=== PATIENT | male | born 1940 | race Caucasian/White ===

== ENCOUNTER 2019-11-15 08:16 | Inpatient (IN) | payer MEDICARE, SELFPAY ==
[2019-11-15] VITALS (18 sets, daily range): BP systolic 105–142; BP diastolic 64–77; PULSE 71–103; RESP 18–22; TEMP 36.2–37.3; O2SAT 82–100; BMI 42.4
--- NOTE | ~2019-11-15 | US_ITS ---
EXAMINATION: US abdomen limited DATE: 11/20/2019 14:20 INDICATION: Liver metastases for planned biopsy. TECHNIQUE: Multiple grayscale and Doppler ultrasound images of the liver were obtained. COMPARISON: CT dated 11/15/2019 FINDINGS/IMPRESSION: None of the liver lesions identified on prior CT were able to be definitively visualized on the ultra sound images likely due to patient body habitus as well as relatively cephalad position of the majori ty of the lesions at the dome of the liver. It was elected to proceed with CT guidance for the planne d biopsy which will be dictated separately. Reviewed, dictated and finalized at location [facility].
--- NOTE | ~2019-11-15 | XR_ITS ---
XR chest port-a-cath/central, XR fl guide central line place 11/21/2019 14:09 (accession [id number]), 11/21/2019 13:55 (accession [id number]) Indication: Right-sided portacatheter placement Procedure: Single fluoroscopic image right upper thorax. 20 seconds of fluoroscopy. Postprocedure AP portable view of the chest Comparison: 06/16/2012 Findings: Right internal jugular portacatheter tip in the condyle aspect of the SVC near the cavoatri al junction. Moderate cardiomegaly. There is suggestion of left-sided airspace disease which is obscu red by cardiac contour. No definite pleural effusion or pneumothorax. Impression: 1: Questionable airspace consolidation left mid and lower thorax, obscured by enlarged heart. Conside rations include atelectasis and/or pneumonia. 2: Moderate cardiomegaly. Reviewed, dictated and finalized at location A. Impression: 1: Questionable airspace consolidation left mid and lower thorax, obscured by e nlarged heart. Considerations include atelectasis and/or pneumonia. 2: Moderate cardiomegaly. Impression: 1: Questionable airspace consolidation left mid and lower thorax, obscured by e nlarged heart. Considerations include atelectasis and/or pneumonia. 2: Moderate cardiomegaly.
--- NOTE | ~2019-11-15 | CT_ITS ---
EXAMINATION: CT abdomen pelvis w con DATE: 11/15/2019 09:42 INDICATION: Abdominal pain, diarrhea TECHNIQUE: Computed tomography (CT) of the abdomen and pelvis was performed with 100 cc Omnipaque 350 intravenous contrast. Automated exposure control and iterative reconstruction technique were employe d. Exam dose: 1519.80 mGy-cm total exam DLP. COMPARISON: 07/20/2009 CT urogram FINDINGS: There is bilateral lower lobe atelectasis, most prominent in the left lower lobe. Cardiomegaly. No pericardial effusion. No pleural effusion. There are multiple space-occupying solid mass lesions of the liver measuring up to 2.5 cm, most consi stent with hepatic metastatic disease. Much less likely consideration would be hepatic abscesses Occasional hepatic cysts. There is some subcapsular fluid accumulation along the anterolateral lower aspect of the right hepati c lobe and adjacent perihepatic fat stranding extending to the right colon where there is some promin ent thickening of the colonic wall involving the ascending colon, suspicious for carcinoma of the asc ending colon. There are evaluation of the colon is recommended by barium enema or colonoscopy. There are numerous diverticula of the left colon; no CT evidence diverticulitis. There are air-fluid levels of the proximal colon and there is fluid distention and air-fluid levels a nd mild dilatation of 4 cm of the small bowel. The gallbladder is present. No bile duct or pancreatic duct dilatation. No pancreatic mass lesion or calcification. Probable very small right adrenal adenoma. The adrenal glands are otherwise unremarkable. Up to approximately 1.3 cm occasional hypoenhancing lesions of the left kidney and up to approximatel y 10 mm indeterminate hypoenhancing lesions of the right kidney. A pinpoint nonobstructing left renal calculus is noted. No ureteral calculus or hydroureteronephrosis . There is prostate enlargement and calcification. There is a prominent soft tissue mass at the base of the urinary bladder which may represent prostatomegaly, prostate cancer or less likely urinary bladd er cancer. There is diffuse moderate thickening of the urinary bladder wall likely related to bladder outlet obstruction associated with prostate enlargement. Abdominal aortic calcification. No intraperitoneal or retroperitoneal or pelvic mass lesion or adenop athy or ascites is noted otherwise. There are extensive degenerative changes of the included lower thoracic and lumbar spine including se oma degenerative disc disease throughout the lumbar and lumbosacral area and diffuse idiopathic skel etal hyperostosis of the thoracic spine. No apparent suspicious osteolytic or osteoblastic lesions ar e identified. 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 Reviewed, dictated and finalized at location A. IMPRESSION: Suspected carcinoma the ascending colon with hepatic metastatic di sease Mild small bowel dilatation and air-fluid levels, air-fluid levels of ascending colon, possibly secondary to partial obstruction due to the ascending colon ma ss Diverticulosis of the colon Nonspecific up to 1.3 cm left and 10 mm right indeterminate renal lesions Prostate enlargement and calcification
--- NOTE | ~2019-11-15 | CT_ITS ---
EXAMINATION: CT bx liver DATE: 11/20/2019 15:29 INDICATION: Multiple liver masses TECHNIQUE: The procedure including the risks and benefits was discussed with the patient. Risks discu ssed included bleeding and infection. The challenging location and poor conspicuity of the lesions wh ich increase the potential for nondiagnostic specimen was discussed with the patient. The patient und erstood the risks and agreed to proceed. The skin overlying the liver was prepped and draped in usua l sterile fashion. Anesthetic was administered with 1% lidocaine subcutaneously. During the biopsy 2 separate boluses of 75 mL and 100 mL Omnipaque-350 were utilized to aid in localization of the lesio n. An 18 gauge outer needle was advanced under CT guidance to the region of one of the lesions of int erest. An 20 gauge core biopsy needle was then advanced through the guide needle to obtain 6 core bio psy specimens. The biopsy needle and outer needle were removed and the entry site was cleaned and ryan ssed. There were no immediate complications. The mAs was minimized when appropriate to minimize radi ation dose. The dose-length product was 2080.69 mGy-cm. FINDINGS: CT images demonstrate the outer needle tip in the region of an approximately 1.7 cm lesion in the right hepatic lobe. Again seen is focal soft tissue thickening of the ascending colon and soft tissues just nodule in the immediately adjacent fat consistent with biopsy-proven colon cancer and l ikely local metastasis. IMPRESSION: 1. Successful CT-guided biopsy of one of several hepatic lesions concerning for metastatic disease. Reviewed, dictated and finalized at location A.
--- NOTE | 2019-11-15 08:30 | ED.ABDPAIN ---
HPI - Abdominal Pain General Chief Complaint: Abdominal Pain Stated Complaint: ABD PAIN/DIARRHEA Source: RN notes reviewed History of Present Illness HPI narrative: Patient presents emergency department via EMS from [facility] for abdominal pain. Patient states he is been having abdominal pain for the past 4 days. Abdominal pain is diffuse throughout the abdomen described as cramping worse in the lower quadrants. States he is had numerous episodes of diarrhea as well as a few episodes of vomiting. He denies any fevers or chills chest pain shortness of breath or any other symptoms at this time Related Data Home Medications Medication Instructions Recorded Confirmed vitamin E 400 unit PO DAILY 11/15/19 Allergies Allergy/AdvReac Type Severity Reaction Status Date / Time No Known Allergies Allergy Mild Verified 11/15/19 08:23 mold Allergy Unknown Sneezing Verified 11/15/19 08:23 Review of Systems Review of Systems: Narrative: Gen.: Denies fevers or chills ENT: Denies congestion Respiratory: Denies shortness of breath or cough CV: Denies chest pain or palpitations GI: See HPI denies burning, urgency, frequency or hematuria Musculoskeletal: Denies back pain or muscle pain Neuro: Denies numbness, tingling, weakness or focal weakness Skin: Denies rash Except as documented, all other systems reviewed and negative [facility] Past Medical History Medical History (Updated 11/15/19 @ 11:43 by Ivan Sapp DO) Atrial fibrillation GERD (gastroesophageal reflux disease) Hypertension Family History Family History (Updated 05/01/15 @ 14:44 by DOCTOR UNKNOWN) Father Family history of coronary artery disease Acute myocardial infarction Mother Acute myocardial infarction Social History Social History Smoking status: Never smoker Alcohol intake: current Exam Narrative: Exam Narrative: APPEARANCE: No acute distress, nontoxic, resting in bed HEENT: Normocephalic, atraumatic, OMM RESPIRATORY: No respiratory distress, clear to auscultation bilaterally with no rhonchi wheezing or rales CARDIOVASCULAR: RRR s murmur ABDOMINAL: Soft, nondistended, diffusely tender to palpation, no rebound or guard MUSCULOSKELETAl: Moves all extremities. No clubbing, cyanosis or edema. NEURO: Awake and alert. Following commands, speech normal, no focal deficits SKIN:: Warm, dry. Normal Color PSYCHIATRIC: Normal affect/mood Course Course Emergency Course: Discussed with Dr. Lockwood presentation work-up agrees with consult at this time at this time agrees with consult. Request consult to GI. With patient having no current vomiting request no NG tube at this time Discussed with Dr. Montero presentation working and agrees with consult Discussed with Dr. Jean presentation work-up he agrees with admission at this time Discussed with patient and family results of workup and diagnosis. Discussed need for admission. Patient and family understand and agree to current treatment plan Vital Signs Vital signs: Vital Signs Temperature 97.5 F L 11/15/19 08:17 Pulse Rate 98 11/15/19 08:17 Respiratory Rate 18 11/15/19 08:17 Blood Pressure 133/76 11/15/19 08:17 Pulse Oximetry 98 11/15/19 08:17 Temperature 97.5 F L 11/15/19 08:17 Pulse Rate 71 11/15/19 11:18 Respiratory Rate 20 11/15/19 11:18 Blood Pressure 105/64 11/15/19 11:18 Pulse Oximetry 97 11/15/19 11:18 MDM - Abdominal Pain Lab Data Result diagrams: 11/15/19 08:38 11/15/19 08:38 Labs: Lab Results 11/15/19 11/15/19 11/15/19 Range/Units 08:38 08:38 08:39 WBC 10.3 H (4.5-10.0) K/mm3 RBC 3.51 L (4.6-6.20) M/mm3 Hgb 7.6 L (14.0-18.0) g/dL Hct 26.3 L (42.0-52.0) % MCV 74.9 L (80-100) fl MCH 21.7 L (26-34) pg MCHC 28.9 L (32-36) g/dl RDW 16.0 H (11.5-14.5) % Plt Count 427 H (150-375) k/mm3 MPV 8.9 (7.4-10.4)
[2019-11-15] MEDS: SODIUM CHLORIDE 0.9% IV 1,000 ML 999 ML IV CONT (08:37)
[2019-11-15 08:54] LABS: Basophils Percent Auto 0.1 % (0.2-1.2); Eosinophils Absolute Auto 0.2 K/mm3 (0-0.3); Eosinophils Percent Auto 2.1 % (0-4.4); Hematocrit 26.3 % (42.0-52.0); Hemoglobin 7.6 g/dL (14.0-18.0); Immature Granulocyte Absolute 0.05 K/mm3 (0.00-0.031); Immature Granulocyte Percent A 0.5 % (0-0.5); Lymphocytes Absolute Auto 1.07 K/mm3 (0.9-3.2); Lymphocytes Percent Auto 10.4 % (18.3-44.2); Mean Corpuscular HGB Conc 28.9 g/dl (32-36); Mean Corpuscular Hemoglobin 21.7 pg (26-34); Mean Corpuscular Volume 74.9 fl (80-100); Mean Platelet Volume 8.9 fl (7.4-10.4); Monocytes Absolute Auto 0.9 K/mm3 (0.1-0.6); Neutrophils Percent Auto 77.9 % (45.5-73.1); Platelet Count Result 427 k/mm3 (150-375); Red Blood Count 3.51 M/mm3 (4.6-6.20); White Blood Count 10.3 K/mm3 (4.5-10.0)
[2019-11-15 09:02] LABS: INR 1.2; Prothrombin Time 15.1 Seconds (11.1-14.7)
[2019-11-15 09:03] LABS: Partial Thromboplastin Time 35.2 SECONDS (22.3-36.8)
[2019-11-15 09:04] LABS: Lactic Acid Reflex 1.1 mmol/L (0.7-2.1)
[2019-11-15 09:04] LABS: Anisocytosis 1+ (NORMAL); Hypochromasia 1+ (NORMAL); Platelet Estimate Adequate (Adequate)
[2019-11-15 09:06] LABS: Alanine Aminotransferase 15 U/L (4-50); Albumin Level 3.4 g/dL (3.5-5.1); Alkaline Phosphatase 70 U/L (38-126); Aspartate Amino Transferase 26 U/L (17-59); Bilirubin,Total 0.3 mg/dL (0.2-1.3); Blood Urea Nitrogen 19 mg/dL (9-20); Carbon Dioxide 31 mmol/L (22-30); Chloride 99 mmol/L (98-107); Estimated CRCL calculation 80 ml/min; Estimated Glomerular Filt Rate > 60; Glucose 113 mg/dL (75-110); Lipase 45 U/L (23-300); Potassium 4.3 mmol/L (3.4-5.0); Sodium 135 mmol/L (137-145)
[2019-11-15 10:11] LABS: Add Urine Microscopic? YES; Appearance Urine Cloudy (Clear); Bacteria Urine Trace /hpf; Bilirubin Urine Negative (Negative); Blood Urine 3+ (Negative); Color Urine Yellow (Yellow); Glucose Urine UA Negative (Negative); Ketones Urine Negative (Negative); Leukocyte Esterase Ur Negative LEU/UL (Negative); Mucus Urine Few /lpf; Nitrate Urine Negative (Negative); Protein Urine 2+ mg/dL (Negative); RBC Urine >75 /hpf (0-2); Specific Grav Ur 1.019 (1.001-1.035); Urobilinogen Urine Negative mg/dL (<2.0); WBC Urine 51-75 /hpf
--- NOTE | 2019-11-15 12:30 | ADMGEN ---
This patient, Chaim Wade, was admitted to -. Patient/family oriented to hospital policies and general routines including ID bracelet, bed and alarms, visiting hours, pain management, procedures, bathroom and other care routines, personal items, smoking policy, room service/diet, and visiting hours. Valuables list has been completed. Information on how to activate the Rapid Response Team has been discussed. Patient/Family are encouraged to report perceived risks to care and to ask questions if they do not understand what they are told or what they should do.
--- NOTE | 2019-11-15 12:49 | WPDGICN ---
Assessment and Plan Assessment and plan (1) Abnormal CT scan: Code(s): R93.89 - Abnormal findings on diagnostic imaging of other specified body structures Status: Acute Assessment and Plan: CT can scan strongly suspicious for liver metastases and colon mass in the ascending colon. Plan is to prepare patient with laxatives and proceed with colonoscopy. Given question over anticoagulation will defer this until Monday. It will likely take several days for colon preparation. A liver biopsy may also be required via CT scan guidance to confirm metastatic disease suspected in the liver. (2) Partial bowel obstruction: Code(s): K56.600 - Partial intestinal obstruction, unspecified as to cause Status: Acute Assessment and Plan: Given partial small-bowel obstruction will limit to liquid diet only in the interim period patient has been having bowel movements. And will need preparation prior to endoscopy. (3) Anemia: Code(s): D64.9 - Anemia, unspecified Status: Acute Assessment and Plan: Microcytic anemia identified in the emergency room. Strongly suspicious for iron deficiency. Iron indices will be obtained. Iron replacement suggested after colonoscopy. (4) Atrial fibrillation: Code(s): I48.91 - Unspecified atrial fibrillation Status: Acute Assessment and Plan: Patient identified as having atrial fibrillation. It is uncertain if he remains on anticoagulation. No anticoagulation should be given prior to further investigation with liver biopsy and colonoscopy. (5) Colonic mass: Code(s): K63.89 - Other specified diseases of intestine Status: Acute Assessment and Plan: Colon mass identified on CT scan suspicious for carcinoma plan is for colonoscopy to confirm this finding. Surgery consultation for partial small-bowel obstruction eventual surgery with Dr. Lockwood in progress. (6) Morbid obesity: Code(s): E66.01 - Morbid (severe) obesity due to excess calories Status: Acute GI Consult Note Consult date/time: 11/15/19 12:49 HPI: Chaim Wade is a 78 year old male seen in evaluation at the request of the emergency room. Patient reports a 4 day history of right lower quadrant abdominal pain. He subsequently had some diarrhea stools. Because of persistent severe pain he presented to the emergency room today. Patient denies any nausea vomiting he has been able to maintain oral intake without difficulty. He denies any fevers he denies abdominal pain. In the emergency room a CT scan suggested liver metastases and an ascending colon lesion suspicious for carcinoma. Concern over partial obstruction was identified. Patient denies any obvious signs of blood loss. He has had never had pain to this degree before. He denies ever having a previous colonoscopy. Past history is significant for atrial fibrillation he reports he may be on blood thinners. This is been difficult to confirm. Review of Systems Review of Systems: All systems reviewed & are unremarkable except as noted in HPI and below [facility] Past Medical History Medical History Atrial fibrillation GERD (gastroesophageal reflux disease) Hypertension Family History Family History Father Family history of coronary artery disease Acute myocardial infarction Mother Acute myocardial infarction Social History Social History Smoking status: Never smoker Alcohol intake: current Meds Home Medications and Allergies Home Medications Medication Instructions Recorded Confirmed Type diltiazem HCl 360 mg 360 mg PO DAILY #90 cap 11/04/19 11/15/19 Rx capsule,extended release 24 hr furosemide 40 mg tablet 40 mg PO QAM #90 tablet 11/04/19 11/15/19 Rx potassium chloride 10 mEq 10 meq PO DAILY #90 cap 11/04/19
[2019-11-15 13:11] LABS: Iron 26 ug/dL (49-181)
[2019-11-15 13:20] LABS: Percent Iron Saturation 11 % (20-50)
[2019-11-15 13:42] LABS: Carcinoembryonic Antigen 1.3 ng/mL (0.0-3.0)
--- NOTE | 2019-11-15 13:58 | PM.CNGS ---
Assessment and Plan Assessment and plan (1) Colonic mass: Code(s): K63.89 - Other specified diseases of intestine Status: Acute Assessment and Plan: CT scan reviewed and discussed with the patient in detail. There is evidence of wall thickening of the ascending colon concerning for malignancy that may also be causing a partial bowel obstruction, with possible metastatic liver lesions. The patient does not show signs of a high-grade obstruction at this time and has been tolerating oral intake without nausea or vomiting. There is no indication for any emergent surgical intervention at this time, which will allow time for further workup of the CT findings. An initial option would be to proceed with a Colonoscopy per GI's discretion to obtain biopsies of the area of concern in the ascending colon. GI has been consulted and their recommendations are appreciated. Could also consider getting a biopsy of the liver lesions by Radiology. We will defer NG tube placement at this time, unless the patient develops nausea and vomiting. It is okay from a surgical standpoint to allow the patient to have a clear liquid diet. Will continue to monitor the patient with serial abdominal exams. Biopsy results will help decipher further surgical plan of care. The patient is a higher risk surgical candidate due to his multiple co-morbidities, age, and obesity, but this will be further discussed following further workup. Thank you for allowing me to see the patient in consultation and we will continue to follow along with you. (2) Partial bowel obstruction: Code(s): K56.600 - Partial intestinal obstruction, unspecified as to cause Status: Acute Assessment and Plan: See plan above. (3) Abnormal CT scan: Code(s): R93.89 - Abnormal findings on diagnostic imaging of other specified body structures Status: Acute Assessment and Plan: See plan above. Liver lesions noted on CT concerning for hepatic metastatic disease. Could consider core needle biopsy of the liver lesions by Radiology. (4) Anemia: Code(s): D64.9 - Anemia, unspecified Status: Acute Assessment and Plan: Hgb 7.6 and hemodynamically stable. GI consulted and appreciate their recommendations. Continue to monitor labs, serial H/H currently ordered. (5) Atrial fibrillation: Code(s): I48.91 - Unspecified atrial fibrillation Status: Acute Assessment and Plan: The patient's rhythm is irregular on my exam, but rate-controlled. No recent EKG noted in the chart. Per the nurse, his home med list was confirmed with Rosario Culver and he does not appear to be on any systemic anticoagulation. (6) Hypertension: Code(s): I10 - Essential (primary) hypertension Status: Acute Assessment and Plan: Management per the Hospitalist. (7) Obstructive sleep apnea on CPAP: Code(s): G47.33 - Obstructive sleep apnea (adult) (pediatric); Z99.89 - Dependence on other enabling machines and devices Status: Acute (8) Morbid obesity: Code(s): E66.01 - Morbid (severe) obesity due to excess calories Status: Acute Additional Plan I discussed the patient's case and formulated the plan of care with Dr. Lockwood today. History of Present Illness Consult details Consult date: 11/15/19 Reason for consult: other (Ascending colonic wall thickening with dilated proximal colon and small bowel noted on CT scan) Requesting physician: Ivan Sapp DO Narrative: This is a 78-year-old obese male who presented to the emergency department for evaluation of abdominal pain, diarrhea, and generalized weakness. His medical history includes atrial fibrillation without current systemic anticoagulation, hypertension, hyperlipidemia, GERD, and obstructive sleep apnea. The patient reports noting diarrhea and lower abdominal pain for the past 3 days. He states that he has also noted black stools over the past 3 weeks, which is new f
[2019-11-15] MEDS: SODIUM CHLORIDE 0.9% IV 1,000 ML 125 ML IV CONT (14:14)
--- NOTE | 2019-11-15 16:25 | PM.IMHP ---
H&P: HPI History of Present Illness Chief complaint: Abdominal pain and diarrhea. Narrative: Chaim Wade is a very pleasant 78-year-old gentleman with paroxysmal atrial fibrillation, obstructive sleep apnea, hypertension, hyperlipidemia, and benign prostatic hyperplasia who presented to the emergency department earlier today for evaluation of abdominal pain and diarrhea. He has had intermittent diarrhea over the past several weeks, and notes that his stools have been dark as well. Over the past several days, he has had discomfort in the lower abdomen that he describes as cramping in nature. He was prescribed hyoscyamine by his primary care provider, but unfortunately the initial dose that he took yesterday was of no benefit. His appetite has also been decreased over the past few days which she attributes to the abdominal discomfort as well as some mild indigestion. Pertinent findings on labs and imaging done on arrival to the emergency department include microcytic anemia and suspected ascending colon mass with multiple space-occupying solid mass lesions in the liver. With further questioning, the patient reports having prepped for colonoscopy many years ago, however the procedure was not performed due to what sounds like new onset atrial fibrillation. His weight has remained stable. He gives no personal or family history of colon cancer. He denies nausea and vomiting. Denies iron supplementation and Pepto-Bismol use. Review of Systems Review of Systems: Narrative: Twelve systems were reviewed with pertinent positives and negatives as per HPI. Weight has remained stable. No fever, chills, or sweats. No recent cold or flu symptoms. He has been feeling weak over the past several days which she attributes to decreased oral intake and abdominal discomfort. Aside from the dark stools, he has not noticed blood loss and specifically denies epistaxis, hematemesis, hematochezia, and hematuria. No dysuria or hematuria (urine specimen today was collected via straight catheterization). No chest pain or palpitations. Denies cough and shortness of breath. Except as documented, all other systems were reviewed and are negative. [facility] Past Medical History Medical History (Updated 11/15/19 @ 16:47 by Indu Lester PA-C) Atrial fibrillation No longer on systemic anticoagulation for reasons unclear to the patient. Benign prostatic hyperplasia GERD (gastroesophageal reflux disease) Hyperlipidemia Hypertension Obstructive sleep apnea on CPAP Compliant with CPAP. Surgical History Surgical History (Updated 11/15/19 @ 16:41 by Indu Lester PA-C) History of arthroscopy of right knee (~1998) History of total left knee replacement (~2000) Family History Family History Father Family history of coronary artery disease Acute myocardial infarction Mother Acute myocardial infarction Social History Social History (Updated 11/15/19 @ 16:44 by Indu Lester PA-C) Social History: The patient and his have been at [facility] for the past 14 years. She has advanced Alzheimer's disease and lives in the [facility]. He has an apartment in independent living. Together they have 4 children, 2 are from his 's previous marriage. 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 He is a lifelong nonsmoker and denies alcohol and drug abuse. His son, Kamran Wade, is his healthcare power of music director. The patient wishes to be a do not resuscitate. Alcohol use details: Rare. Last intake was months ago. Spiritual care concerns: No Agree to blood products: Yes Meds Home Medications and Allergies Home Medications Medication Instructions Recorded Confirmed Type diltiazem HCl 360 mg 360 mg PO DAILY #90 cap 11/04/19 11/15/19 Rx capsule,extended release 24 hr furosemide 40 mg tablet 40 mg PO QAM #90 tablet 11/04/19 11/15/19 Rx potassium chloride 10 mEq 10 meq
[2019-11-15 16:35] LABS: Hematocrit 26.3 % (42.0-52.0); Hemoglobin 7.7 g/dL (14.0-18.0)
--- NOTE | 2019-11-15 17:32 | PM.OP ---
Procedure Note - Brief Procedure Note - Brief Date of procedure: 11/15/19 Pre-op diagnosis: Abdominal pain and diarrhea. Upper GI bleeding, hematemesis, alcoholic cirrhosis. Procedure performed: EGD. Description of procedure: Fujinon video endoscope is passed to the esophagus no significant varices are identified within the esophagus. At the GE junction several large distal esophageal ulcerations are noted. No active bleeding from this area. Stomach his hands entirety including U-turn reveals large gastric varices with stigmata of recent bleeding. On 1 of these large varix visible vessels identified not actively bleeding at this time. The remainder of the stomach reveals some residual blood. No additional lesions. No ulcers. Duodenum reveals normal bulb and sweep to 2nd portion. Anesthesia: MAC Surgeon: Selvin Montero MD Estimated blood loss (mL): 0 Pathology: none sent Complications: No immediate complications Condition: critical Disposition: ICU Findings: 1. Distal esophageal ulcerations. 2. Gastric varices with stigmata of recent bleeding. Plan to remain in ICU. Octreotide drip. Transfuse to maintain stable hemoglobin. Consider CT scan of the abdomen to exclude splenic vein thrombus when stable enough for CT. Consider transfer to [facility] for TI PS procedure Case discussed with hospitalist Rivka Lester. Who agrees with plan.
[2019-11-15 21:28] LABS: Hematocrit 25.3 % (42.0-52.0); Hemoglobin 7.4 g/dL (14.0-18.0)
[2019-11-15] MEDS: ACETAMINOPHEN 325 MG TABLET 650 MG PO (21:29)
[2019-11-15] MEDS: SODIUM CHLORIDE 0.9% IV 1,000 ML 75 ML IV CONT (23:52)
[2019-11-16 01:42] VITALS: RESP 19
[2019-11-16] MEDS: LORAZEPAM 0.5 MG TABLET PO (02:31)
[2019-11-16 03:45] LABS: Basophils Percent Auto 0.2 % (0.2-1.2); Eosinophils Absolute Auto 0.2 K/mm3 (0-0.3); Eosinophils Percent Auto 2.7 % (0-4.4); Hematocrit 26.9 % (42.0-52.0); Hemoglobin 7.9 g/dL (14.0-18.0); Immature Granulocyte Absolute 0.02 K/mm3 (0.00-0.031); Immature Granulocyte Percent A 0.2 % (0-0.5); Lymphocytes Absolute Auto 0.79 K/mm3 (0.9-3.2); Lymphocytes Percent Auto 8.8 % (18.3-44.2); Mean Corpuscular HGB Conc 29.4 g/dl (32-36); Mean Corpuscular Hemoglobin 22.1 pg (26-34); Mean Corpuscular Volume 75.4 fl (80-100); Mean Platelet Volume 8.8 fl (7.4-10.4); Monocytes Absolute Auto 0.9 K/mm3 (0.1-0.6); Monocytes Percent Auto 10.4 % (2.6-8.5); Neutrophils Absolute Auto 6.9 K/mm3 (1.3-6.7); Neutrophils Percent Auto 77.7 % (45.5-73.1); Platelet Count Result 398 k/mm3 (150-375); Red Blood Count 3.57 M/mm3 (4.6-6.20); White Blood Count 8.9 K/mm3 (4.5-10.0)
[2019-11-16 03:57] LABS: Alanine Aminotransferase 23 U/L (4-50); Albumin Level 3.5 g/dL (3.5-5.1); Alkaline Phosphatase 69 U/L (38-126); Aspartate Amino Transferase 36 U/L (17-59); Bilirubin,Total 0.3 mg/dL (0.2-1.3); Blood Urea Nitrogen 16 mg/dL (9-20); Calcium 8.4 mg/dL (8.4-10.2); Carbon Dioxide 26 mmol/L (22-30); Chloride 103 mmol/L (98-107); Estimated CRCL calculation 88 ml/min; Estimated Glomerular Filt Rate > 60; Glucose 114 mg/dL (75-110); Potassium 3.7 mmol/L (3.4-5.0); Sodium 137 mmol/L (137-145)
[2019-11-16 04:15] VITALS: RESP 22
[2019-11-16 04:15] LABS: Ovalocytes 1+ (NORMAL); Platelet Estimate Adequate (Adequate)
[2019-11-16 04:16] LABS: Hypochromasia 1+ (NORMAL)
[2019-11-16 04:28] LABS: Carcinoembryonic Antigen 1.4 ng/mL (0.0-3.0)
[2019-11-16 06:00] VITALS: BP 124/78; PULSE 100; RESP 22; TEMP 37.2; O2SAT 98
--- NOTE | 2019-11-16 06:49 | WPDGIPROGNO ---
Progress Note: A&P Assessment and Plan (1) Abnormal CT scan: Code(s): R93.89 - Abnormal findings on diagnostic imaging of other specified body structures Status: Acute Assessment and Plan: Suspicion of colon mass with liver metastases on CT scan. Plan is to prep patient for colonoscopy on Monday. Liquid diet today. May start some laxatives today in complete prep on Monday. (2) Partial bowel obstruction: Code(s): K56.600 - Partial intestinal obstruction, unspecified as to cause Status: Acute Assessment and Plan: Patient tolerating liquid diet. Continues to have bowel movements. Does not appear to have complete obstruction. (3) Morbid obesity: Code(s): E66.01 - Morbid (severe) obesity due to excess calories Status: Acute (4) Atrial fibrillation: Code(s): I48.91 - Unspecified atrial fibrillation Status: Acute Assessment and Plan: Atrial fibrillation noted. Hold anticoagulation until GI endoscopy can be completed. (5) Obstructive sleep apnea on CPAP: Code(s): G47.33 - Obstructive sleep apnea (adult) (pediatric); Z99.89 - Dependence on other enabling machines and devices Status: Acute Subjective Date/time seen: 11/16/19 06:49 Patient alert more comfortable this morning. Tolerated liquid diet. Abdominal pain has lessened to a great degree. He continues to pass some liquid stools. Review of Systems Review of Systems: All systems reviewed & are unremarkable except as noted in HPI and below Exam Narrative: Exam Narrative: Patient alert. Vital signs stable. He is anicteric. Lungs are clear. Heart without murmur. Abdomen is obese soft and nontender. No obvious organomegaly on exam. Objective Data Vital Signs Vital Signs: Vital Signs - 24 hr 11/15/19 08:17 11/15/19 08:24 11/15/19 08:32 Temperature 36.4 C L Pulse Rate 98 87 Respiratory Rate 18 Blood Pressure 133/76 Pulse Oximetry 98 82 L 97 11/15/19 08:47 11/15/19 09:02 11/15/19 09:15 Temperature Pulse Rate 89 88 86 Respiratory Rate Blood Pressure Pulse Oximetry 97 99 11/15/19 09:39 11/15/19 09:41 11/15/19 09:45 Temperature Pulse Rate 92 96 102 H Respiratory Rate 20 Blood Pressure 123/73 Pulse Oximetry 96 97 96 11/15/19 10:00 11/15/19 10:02 11/15/19 11:18 Temperature Pulse Rate 97 93 71 Respiratory Rate 20 Blood Pressure 135/77 105/64 Pulse Oximetry 97 11/15/19 12:28 11/15/19 13:03 11/15/19 14:00 Temperature 36.2 C L 36.3 C L Pulse Rate 82 87 88 Respiratory Rate 20 22 H 18 Blood Pressure 142/70 H 134/71 115/72 Pulse Oximetry 97 88 L 100 11/15/19 18:36 11/15/19 20:00 11/15/19 20:35 Temperature 37.3 C Pulse Rate 94 103 H 97 Respiratory Rate 20 22 H 21 H Blood Pressure 113/66 Pulse Oximetry 95 97 96 11/16/19 01:42 11/16/19 04:15 11/16/19 06:00 Temperature 37.2 C Pulse Rate 100 Respiratory Rate 19 22 H 22 H Blood Pressure 124/78 Pulse Oximetry 98 Intake/Output Intake/Output: Intake & Output 11/13/19 11/14/19 11/15/19 11/16/19 23:59 23:59 23:59 23:59 Intake Total 2900 150 Output Total 300 200 Balance 2600 -50 Meds/Results Medications: Active Medications Generic Name Dose Route Start Last Admin Trade Name Freq PRN Reason Stop Dose Admin Acetaminophen 650 mg 11/15/19 17:05 11/15/19 21:29 Tylenol Tablet PO 650 mg Q6H PRN Administration Mild Pain (1-3) or Fever Hydrocodone Bitart/Acetaminophen 1 tab 11/15/19 17:05 11/15/19 17:53 [place] 5-325 Mg PO 1 tab Q6H PRN Administration Pain Rated 4-10 Diltiazem HCl 360 mg 11/16/19 09:00 Cardizem Cd PO 12/16/19 09:01 DAILY LESLIE Furosemide 40 mg 11/16/19 09:00 Lasix Tablet PO QAM LESLIE Lisinopril 20 mg 11/16/19 09:00 Prinivil PO DAILY LESLIE Ondansetron HCl 4 mg 11/15/19 11:28 Zofran Inj IV PUSH Q4H PRN Nausea Oxybutynin Chloride 5 mg 11/16/19 09:00
[2019-11-16] MEDS: OXYBUTYNIN CHLORIDE 5 MG TABLET PO ×2 (08:34→17:20)
[2019-11-16] MEDS: TAMSULOSIN HCL 0.4 MG CAPSULE PO (08:34)
[2019-11-16] MEDS: lisinopriL 20 MG TABLET PO (08:34)
[2019-11-16] MEDS: FUROSEMIDE 40 MG TABLET PO (08:34)
[2019-11-16] MEDS: POTASSIUM CHLORIDE 10 MEQ TABLET.ER PO (08:34)
[2019-11-16] MEDS: VENLAFAXINE HCL XR 75 MG CAP.ER.24H PO ×2 (08:35→17:20)
--- NOTE | 2019-11-16 08:48 | PM.IMPN ---
Progress Note: A&P Assessment and Plan (1) Abnormal CT scan: Code(s): R93.89 - Abnormal findings on diagnostic imaging of other specified body structures Status: Acute Assessment and Plan: -----CT of the abdomen pelvis shows likely colonic mass and liver metastases. He is to have a colonoscopy by Dr. Montero Monday. He also has a possible bowel obstruction but is eating and drinking fine with no nausea or vomiting. The CT also mentions some urologic abnormalities and I am going to consult Urology. See below. (2) Partial bowel obstruction: Code(s): K56.600 - Partial intestinal obstruction, unspecified as to cause Status: Acute Assessment and Plan: -----the patient has had multiple bowel movements and is tolerating a clear liquid diet, which will be continued. (3) Microcytic anemia: Code(s): D50.9 - Iron deficiency anemia, unspecified Status: Acute Assessment and Plan: -----appears to be anemia chronic disease likely due to carcinoma and could have a component of iron deficiency. Monitor H&H. Patient is not having any symptoms of anemia at this time (4) Atrial fibrillation: Code(s): I48.91 - Unspecified atrial fibrillation Status: Acute Assessment and Plan: -----chronic and rate controlled. Not on any anticoagulation. Because of his new diagnosis and significant anemia, no plan to start anticoagulation at this time. Continue diltiazem (5) Hypertension: Code(s): I10 - Essential (primary) hypertension Status: Acute Assessment and Plan: -----last blood pressure 124/78. Continue lisinopril and Lasix (6) Obstructive sleep apnea on CPAP: Code(s): G47.33 - Obstructive sleep apnea (adult) (pediatric); Z99.89 - Dependence on other enabling machines and devices Status: Acute Assessment and Plan: -----continue CPAP. (7) Benign prostatic hyperplasia: Code(s): N40.0 - Benign prostatic hyperplasia without lower urinary tract symptoms Status: Acute Assessment and Plan: -----continue tamsulosin. CT showed enlargement and calcification. (8) Hematuria: Code(s): R31.9 - Hematuria, unspecified Status: Acute Assessment and Plan: -----UA greater than 75 red blood cells but also does have some white blood cells as well. Patient is not having any symptoms of UTI at this time. The CT shows: There is a prominent soft tissue mass at the base of the urinary bladder which may represent prostatomegaly, prostate cancer or less likely urinary bladder cancer. There is diffuse moderate thickening of the urinary bladder wall likely related to bladder outlet obstruction associated with prostate enlargement. Because of his hematuria and liver Mets (which are likely from the colon cancer) I will consult Urology to see if he needs a cystoscopy as well. He has had a colonoscopy Monday. Urine culture is pending but I do not see any evidence of infection at this time. (9) Anxiety: Code(s): F41.9 - Anxiety disorder, unspecified Status: Acute Assessment and Plan: -----patient sounds like he had an anxiety episode last night. He feels overwhelmed with all the information and misses his dog and . He is in much better spirits today and he said taking big breaths and talking to the nurses helped him calmed down. I have added Xanax p.r.n. if needed. Time Spent With Patient Time with patient: 25 - 35 minutes Subjective Date/time seen: 11/16/19 08:48 Interval history: Pt is a 78-year-old male here for abdominal pain and diarrhea found to have a colon mass with liver metastases. Patient was seen today and states he is still having liquid stool. He does not have any abdominal pain at this time. He had a bit of anxiety overnight but is doing much better. He states he has no hematuria, dysuria, or foul-smelling odor. Pt denies nausea, vomiting, fev
--- NOTE | 2019-11-16 09:49 | WPDURCON ---
Assessment and Plan Assessment and plan (1) Benign prostatic hyperplasia: Code(s): N40.0 - Benign prostatic hyperplasia without lower urinary tract symptoms Status: Acute Assessment and Plan: minimal voiding complaints good voiding efficiency stop oxybutinin continue Flomax (2) Hematuria: Code(s): R31.9 - Hematuria, unspecified Status: Acute Assessment and Plan: resolved most likely related to cath irritation with straight cath Urology Consult Note HPI Date Seen: 11/16/19 Requesting Physician: Anahi Tracey PA-C Primary Care Provider: Olive Benito MD Consult Narrative Narrative: Chaim Wade is a 78 year old male admitted with loose stools was found to have colon mass on CT. Pt had addtional finding of 2 small benign renal cyst, and slt enlarged prostate. Pt has no voiding complaints other than nocturia 1-2. No dysuria, no hematuria per pt. Review of Systems Cardiovascular: Cardiovascular: Reports no additional cardiovascular complaints Respiratory: Respiratory: Reports no additional respiratory complaints Genitourinary: Genitourinary: Reports no additional male genitourinary complaints [facility] Past Medical History Medical History (Updated 11/16/19 @ 08:53 by Anahi Tracey PA-C) Atrial fibrillation No longer on systemic anticoagulation for reasons unclear to the patient. Benign prostatic hyperplasia GERD (gastroesophageal reflux disease) Hyperlipidemia Hypertension Obstructive sleep apnea on CPAP Compliant with CPAP. Surgical History Surgical History (Updated 11/15/19 @ 16:41 by Indu Lester PA-C) History of arthroscopy of right knee (~1998) History of total left knee replacement (~2000) Family History Family History Father Family history of coronary artery disease Acute myocardial infarction Mother Acute myocardial infarction Social History Social History (Updated 11/15/19 @ 16:44 by Indu Lester PA-C) Social History: The patient and his have been at [facility] for the past 14 years. She has advanced Alzheimer's disease and lives in the jail. He has an apartment in independent living. Together they have 4 children, 2 are from his 's previous marriage. 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 He is a lifelong nonsmoker and denies alcohol and drug abuse. His son, Kamran Wade, is his healthcare power of personal injury attorney. The patient wishes to be a do not resuscitate. Alcohol use details: Rare. Last intake was months ago. Spiritual care concerns: No Agree to blood products: Yes Meds Home Medications and Allergies Home Medications Medication Instructions Recorded Confirmed Type diltiazem HCl 360 mg 360 mg PO DAILY #90 cap 11/04/19 11/15/19 Rx capsule,extended release 24 hr furosemide 40 mg tablet 40 mg PO QAM #90 tablet 11/04/19 11/15/19 Rx potassium chloride 10 mEq 10 meq PO DAILY #90 cap 11/04/19 11/15/19 Rx capsule,extended release venlafaxine 75 mg tablet,extended 75 mg PO BID #180 tablet 11/04/19 11/15/19 Rx release 24 hr lisinopril 20 mg tablet 20 mg PO DAILY #90 tablet 11/12/19 11/15/19 Rx oxybutynin chloride 5 mg tablet 5 mg PO BID #180 tablet 11/12/19 11/15/19 Rx hyoscyamine sulfate 0.125 mg tablet 0.125 mg PO BID PRN #30 tablet 11/14/19 11/15/19 Rx tamsulosin 0.4 mg capsule 0.4 mg PO DAILY #90 cap 11/14/19 11/15/19 Rx simvastatin 20 mg PO QPM 11/15/19 11/15/19 History vitamin E 400 unit PO DAILY 11/15/19 11/15/19 History Allergies Allergy/AdvReac Type Severity Reaction Status Date / Time mold Allergy Unknown Sneezing Verified 11/15/19 08:23 Vital Signs Vital Signs - 24 hr 11/15/19 10:00 11/15/19 10:02 11/15/19 11:18 Temperature Pulse Rate 97 93 71 Respiratory Rate 20 Blood Pressure 135/77 105/64 Pulse Oximetry 97 11/15/19 12:28 11/15/19 13:03 11/15/19 14:00 Temperature 36
[2019-11-16] MEDS: MAGNESIUM CITRATE 300 ML BTL 150 ML PO (11:57)
[2019-11-16 14:00] VITALS: BP 115/56; PULSE 94; RESP 20; TEMP 36.6; O2SAT 94
--- NOTE | 2019-11-16 16:58 | PM.PNGS ---
Progress Note: A&P Assessment and Plan (1) Partial bowel obstruction: Code(s): K56.600 - Partial intestinal obstruction, unspecified as to cause Status: Acute Assessment and Plan: This seems to have resolved this patient has had some stools and is not having either nausea or vomiting. (2) Colonic mass: Onset Date: Unknown Code(s): K63.89 - Other specified diseases of intestine Status: Acute Assessment and Plan: Seen with bowel wall thickening in the area of the right colon just below the hepatic flexure. This was seen on CT scan yesterday. (3) Anxiety: Onset Date: ~11/15/19 Code(s): F41.9 - Anxiety disorder, unspecified Status: Acute Assessment and Plan: Nurses report patient less anxious today. (4) Microcytic anemia: Onset Date: Unknown Code(s): D50.9 - Iron deficiency anemia, unspecified Status: Acute Assessment and Plan: However there is a hemoglobin of 13.8 in the old records from [place] in December of last year. (5) Obstructive sleep apnea on CPAP: Onset Date: Unknown Code(s): G47.33 - Obstructive sleep apnea (adult) (pediatric); Z99.89 - Dependence on other enabling machines and devices Status: Acute (6) Morbid obesity: Onset Date: Unknown Code(s): E66.01 - Morbid (severe) obesity due to excess calories Status: Acute (7) GERD (gastroesophageal reflux disease): Onset Date: Unknown Code(s): K21.9 - Gastro-esophageal reflux disease without esophagitis Status: Acute (8) Hypertension: Onset Date: Unknown Code(s): I10 - Essential (primary) hypertension Status: Acute Assessment and Plan: Well controlled (9) Atrial fibrillation: Onset Date: Unknown Code(s): I48.91 - Unspecified atrial fibrillation Status: Acute Assessment and Plan: apparently no longer on oral anticoagulation. Rate well controlled at this time. Additional Plan Discussed with patient possible biopsy of the liver metastasis. This will depend on what is seen at the time of colonoscopy on Monday. If obvious colonic tumors present will await those biopsies and perhaps avoid the risks of a liver biopsy. If however there is not obvious tumor on colonoscopy it may be beneficial to try to get tissue from the liver mets since the patient does have some urothelial abnormalities also. This would help us sort out possible treatments. This was discussed with him today and he seems understand. Subjective Subjective Date/Time Seen: 11/16/19 16:58 Patient seen while resting in bed. He was wearing his nasal CPAP. Patient denies much anxiety or abdominal pain. Did have a loose stool this afternoon. He asked appropriate questions regarding his situation. I discussed with him possibility of a ultrasound or CT-guided liver biopsy late on Monday depending on the results of his colonoscopy. Review of Systems Constitutional: Constitutional: Reports no additional constitutional complaints ENT: Reports other (Mucous Membranes moist.) Cardiovascular: Cardiovascular: Denies dyspnea Respiratory: Respiratory: Denies pain on inspiration and Denies dyspnea Gastrointestinal: Comments: No blood seen in the stool that he did have. Musculoskeletal: Musculoskeletal: Reports other (No calf swelling or edema) Integumentary/Breasts: Skin/Breast: Reports system reviewed and no additional complaints, except as docu Exam Const: General: cooperative, no acute distress, alert and awake Orientation/consciousness: patient oriented x3 HENMT: Mouth: Yes moist mucous membranes Neck: Neck: normal visual inspection Chest: Chest palpation & inspection: normal inspection of the chest Resp: Effort & Inspection: normal respiratory effort Auscultation: clear to auscultation bilaterally GI: Inspection: obesity and striae GI Palp: No abdominal tenderness Auscultatio
[2019-11-16 22:00] VITALS: BP 112/53; PULSE 93; RESP 20; TEMP 36.3; O2SAT 96
[2019-11-16 23:40] VITALS: PULSE 88; RESP 20; O2SAT 96
[2019-11-17] VITALS (10 sets, daily range): BP systolic 94–135; BP diastolic 56–74; PULSE 69–94; RESP 16–23; TEMP 36.1–36.9; O2SAT 95–100
[2019-11-17] MEDS: ACETAMINOPHEN 325 MG TABLET 650 MG PO ×3 (03:12→21:18)
[2019-11-17 05:17] LABS: Hemoglobin 7.3 g/dL (14.0-18.0)
[2019-11-17 05:31] LABS: Blood Urea Nitrogen 11 mg/dL (9-20); Calcium 8.2 mg/dL (8.4-10.2); Carbon Dioxide 29 mmol/L (22-30); Chloride 103 mmol/L (98-107); Estimated CRCL calculation 100 ml/min; Estimated Glomerular Filt Rate > 60; Glucose 98 mg/dL (75-110); Sodium 136 mmol/L (137-145)
--- NOTE | 2019-11-17 07:53 | WPDGIPROGNO ---
Progress Note: A&P Additional Plan Patient alert more comfortable this morning. Tolerating liquid diet. Passed a good bowel movement after laxatives yesterday. He denies abdominal pain at present. Physical exam reveals him to be alert. Vital signs are stable. He is afebrile. Lungs are clear. Heart without murmur. Abdomen is morbidly obese. Soft and nontender. Organomegaly cannot be identified. Impression 1. Abnormal CT scan. Suspicion for liver metastases in colon malignancy. Plan is for colonoscopy in the morning after additional preparation today. 2. Iron deficiency anemia. 3. Atrial fibrillation. 4. Sleep apnea. Subjective Date/time seen: 11/17/19 07:53 Objective Data Vital Signs Vital Signs: Vital Signs - 24 hr 11/16/19 14:00 11/16/19 22:00 11/16/19 23:40 Temperature 36.6 C 36.3 C L Pulse Rate 94 93 88 Respiratory Rate 20 20 20 Blood Pressure 115/56 L 112/53 L Pulse Oximetry 94 96 96 11/17/19 03:46 11/17/19 06:00 Temperature 36.1 C L Pulse Rate 82 88 Respiratory Rate 19 20 Blood Pressure 135/65 Pulse Oximetry 97 97 Intake/Output Intake/Output: Intake & Output 11/14/19 11/15/19 11/16/19 11/17/19 23:59 23:59 23:59 23:59 Intake Total 2900 2930 200 Output Total 300 1100 Balance 2600 1830 200 Meds/Results Medications: Active Medications Generic Name Dose Route Start Last Admin Trade Name Freq PRN Reason Stop Dose Admin Acetaminophen 650 mg 11/15/19 17:05 11/17/19 03:12 Tylenol Tablet PO 650 mg Q6H PRN Administration Mild Pain (1-3) or Fever Hydrocodone Bitart/Acetaminophen 1 tab 11/15/19 17:05 11/17/19 05:02 [place] 5-325 Mg PO 1 tab Q6H PRN Administration Pain Rated 4-10 Alprazolam 0.25 mg 11/16/19 08:45 Xanax PO TID PRN Anxiety Diltiazem HCl 360 mg 11/16/19 09:00 11/16/19 08:34 Cardizem Cd PO 12/16/19 09:01 360 mg DAILY LESLIE Administration Furosemide 40 mg 11/16/19 09:00 11/16/19 08:34 Lasix Tablet PO 40 mg QAM LESLIE Administration Lisinopril 20 mg 11/16/19 09:00 11/16/19 08:34 Prinivil PO 20 mg DAILY LESLIE Administration Ondansetron HCl 4 mg 11/15/19 11:28 Zofran Inj IV PUSH Q4H PRN Nausea Oxybutynin Chloride 5 mg 11/16/19 09:00 11/16/19 17:20 Ditropan PO 5 mg BID LESLIE Administration Polyethylene Glycol/Electrolytes 4,000 ml 11/17/19 10:52 Colyte-Flavored PO 11/17/19 10:53 ONCE ONE Potassium Chloride 10 meq 11/16/19 09:00 11/16/19 08:34 Kcl Tablet PO 10 meq DAILY LESLIE Administration Tamsulosin HCl 0.4 mg 11/16/19 09:00 11/16/19 08:34 Flomax PO 0.4 mg DAILY LESLIE Administration Venlafaxine HCl 75 mg 11/16/19 09:00 11/16/19 17:20 Effexor Xr PO 75 mg BID LESLIE Administration Radiology Results: ITS Impressions Abdomen/Pelvis CT 11/15/19 10:18 IMPRESSION: Suspected carcinoma the ascending colon with hepatic metastatic disease Mild small bowel dilatation and air-fluid levels, air-fluid levels of ascending colon, possibly secondary to partial obstruction due to the ascending colon mass Diverticulosis of the colon Nonspecific up to 1.3 cm left and 10 mm right indeterminate renal lesions Prostate enlargement and calcification Labs Labs: Laboratory Results - last 24 hr 11/17/19 11/17/19 04:58 04:58 Hgb 7.3 L Hct 25.0 L Sodium 136 L Potassium 4.0 Chloride 103 Carbon Dioxide 29 BUN 11 D Creatinine 0.70 Estim Creat Clear Calc 100 Estimated GFR > 60 Glucose 98 Calcium 8.2 L
[2019-11-17] MEDS: lisinopriL 20 MG TABLET PO (08:34)
[2019-11-17] MEDS: VENLAFAXINE HCL XR 75 MG CAP.ER.24H PO ×2 (08:34→17:38)
[2019-11-17] MEDS: POTASSIUM CHLORIDE 10 MEQ TABLET.ER PO (08:34)
[2019-11-17] MEDS: OXYBUTYNIN CHLORIDE 5 MG TABLET PO ×2 (08:34→17:39)
[2019-11-17] MEDS: TAMSULOSIN HCL 0.4 MG CAPSULE PO (08:34)
[2019-11-17] MEDS: FUROSEMIDE 40 MG TABLET PO (08:34)
--- NOTE | 2019-11-17 10:08 | PM.PNGS ---
Progress Note: A&P Assessment and Plan (1) Partial bowel obstruction: Code(s): K56.600 - Partial intestinal obstruction, unspecified as to cause Status: Acute Assessment and Plan: This seems to have resolved this patient has had some stools and is not having either nausea or vomiting. (2) Colonic mass: Onset Date: Unknown Code(s): K63.89 - Other specified diseases of intestine Status: Acute Assessment and Plan: Seen with bowel wall thickening in the area of the right colon just below the hepatic flexure. This was seen on CT scan yesterday. (3) Anxiety: Onset Date: ~11/15/19 Code(s): F41.9 - Anxiety disorder, unspecified Status: Acute Assessment and Plan: Nurses report patient less anxious today. (4) Microcytic anemia: Onset Date: Unknown Code(s): D50.9 - Iron deficiency anemia, unspecified Status: Acute Assessment and Plan: However there is a hemoglobin of 13.8 in the old records from [place] in December of last year. (5) Obstructive sleep apnea on CPAP: Onset Date: Unknown Code(s): G47.33 - Obstructive sleep apnea (adult) (pediatric); Z99.89 - Dependence on other enabling machines and devices Status: Acute (6) Morbid obesity: Onset Date: Unknown Code(s): E66.01 - Morbid (severe) obesity due to excess calories Status: Acute (7) GERD (gastroesophageal reflux disease): Onset Date: Unknown Code(s): K21.9 - Gastro-esophageal reflux disease without esophagitis Status: Acute (8) Hypertension: Onset Date: Unknown Code(s): I10 - Essential (primary) hypertension Status: Acute Assessment and Plan: Well controlled (9) Atrial fibrillation: Onset Date: Unknown Code(s): I48.91 - Unspecified atrial fibrillation Status: Acute Assessment and Plan: apparently no longer on oral anticoagulation. Rate well controlled at this time. Additional Plan Discussed with patient possible biopsy of the liver metastasis. This will depend on what is seen at the time of colonoscopy on Monday. If obvious colonic tumors present will await those biopsies and perhaps avoid the risks of a liver biopsy. If however there is not obvious tumor on colonoscopy it may be beneficial to try to get tissue from the liver mets since the patient does have some urothelial abnormalities also. This would help us sort out possible treatments. This was discussed with him today and he seems understand. Subjective Subjective Date/Time Seen: 11/17/19 10:08 Patient lying in bed with CPAP in place when I entered the room. Denies much abdominal pain. Has had some bowel movements. Will start bowel prep 11:00 a.m.. He is scheduled for colonoscopy tomorrow morning. Review of Systems Constitutional: Constitutional: Reports as per HPI, Reports no additional constitutional complaints, Denies chills, Denies excessive sweating, Reports fatigue, Denies fever(s) and Denies headache(s) Eyes: Eyes: Denies change in vision and Denies loss of vision ENT: Denies dysphagia, Denies dizziness, Denies headache(s), Denies odynophagia and Reports other (Mucous Membranes moist.) Cardiovascular: Cardiovascular: Denies chest pain, Denies syncope, Denies leg edema, Denies lightheadedness, Denies radiating jaw, neck or arm pain, Denies dyspnea and Reports dyspnea on exertion Respiratory: Respiratory: Denies cough, Denies pain on inspiration, Denies dyspnea, Reports dyspnea on exertion, Denies wheezing and Reports other (orthopnea) Gastrointestinal: Gastrointestinal: Reports as per HPI, Reports abdominal pain (lower), Reports melena, Denies bloating, Denies hematochezia, Reports change in bowel habits, Reports constipation, Denies dysphagia, Reports diarrhea, Denies nausea, Denies odynophagia and Denies vomiting Genitourinary: Genitourinary: Denies dysuria, Denies urinary incontinence and D
[2019-11-17] MEDS: PEG (High)/E-LYTE SOLN 4,000 ML BTL 4000 ML PO (11:38)
--- NOTE | 2019-11-17 12:42 | PM.IMPN ---
Progress Note: A&P Assessment and Plan (1) Abnormal CT scan: Code(s): R93.89 - Abnormal findings on diagnostic imaging of other specified body structures Status: Acute Assessment and Plan: -----CT of the abdomen pelvis shows likely colonic mass and liver metastases. He is to have a colonoscopy by Dr. Montero Monday. He has not had any nausea or vomiting and appears that the bowel obstruction may have resolved. The CT also mentions some urologic abnormalities and I am going to consult Urology. See below. (2) Partial bowel obstruction: Code(s): K56.600 - Partial intestinal obstruction, unspecified as to cause Status: Acute Assessment and Plan: -----the patient has had multiple bowel movements and is tolerating a clear liquid diet, which will be continued. NPO at midnight for procedure tomorrow (3) Microcytic anemia: Onset Date: Unknown Code(s): D50.9 - Iron deficiency anemia, unspecified Status: Acute Assessment and Plan: -----7.3 today with weakness and a headache. Because of his symptoms and procedure tomorrow I am going to give him 1 unit of blood. It Appears to be anemia chronic disease likely due to carcinoma and could have a component of iron deficiency. Monitor H&H. (4) Atrial fibrillation: Onset Date: Unknown Code(s): I48.91 - Unspecified atrial fibrillation Status: Acute Assessment and Plan: -----chronic and rate controlled. Not on any anticoagulation. Because of his new diagnosis and significant anemia, no plan to start anticoagulation at this time. Continue diltiazem (5) Hypertension: Onset Date: Unknown Code(s): I10 - Essential (primary) hypertension Status: Acute Assessment and Plan: -----last blood pressure 135/65. Continue lisinopril and Lasix (6) Obstructive sleep apnea on CPAP: Onset Date: Unknown Code(s): G47.33 - Obstructive sleep apnea (adult) (pediatric); Z99.89 - Dependence on other enabling machines and devices Status: Acute Assessment and Plan: -----continue CPAP. (7) Benign prostatic hyperplasia: Code(s): N40.0 - Benign prostatic hyperplasia without lower urinary tract symptoms Status: Acute Assessment and Plan: -----continue tamsulosin. CT showed enlargement and calcification. (8) Hematuria: Code(s): R31.9 - Hematuria, unspecified Status: Acute Assessment and Plan: -----blood seen in the UA with CT abnormalities. Patient is not having any symptoms of UTI at this time and his urine culture is negative. The CT shows: There is a prominent soft tissue mass at the base of the urinary bladder which may represent prostatomegaly, prostate cancer or less likely urinary bladder cancer. There is diffuse moderate thickening of the urinary bladder wall likely related to bladder outlet obstruction associated with prostate enlargement. Urology plans to do outpatient cystoscopy (9) Anxiety: Onset Date: ~11/15/19 Code(s): F41.9 - Anxiety disorder, unspecified Status: Acute Assessment and Plan: ----improved. He has Xanax p.r.n. which he has not needed so far Subjective Date/time seen: 11/17/19 12:42 Interval history: Pt is a 78-year-old male here for abdominal pain and diarrhea found to have a colon mass with liver metastases. Patient was seen today and states he still having significant diarrhea but his abdominal pain is better. He is been drinking the clear liquids and is not excited about his colonoscopy prep later today. He has been having a slight headache and weakness and has requested some Tylenol. He denies chest pain, shortness of breath, dizziness, fevers, chills or leg swelling. Exam Narrative: Exam Narrative: General: Overweight patient resting comfortably in bed in no acute distress HEENT: normocephalic Neck: supple Neuro: Alert and
[2019-11-18] VITALS (11 sets, daily range): BP systolic 100–131; BP diastolic 57–109; PULSE 64–89; RESP 16–28; TEMP 35.8–37.2; O2SAT 91–100
[2019-11-18 05:03] LABS: Hematocrit 26.5 % (42.0-52.0); Hemoglobin 7.9 g/dL (14.0-18.0); Mean Corpuscular HGB Conc 29.8 g/dl (32-36); Mean Corpuscular Hemoglobin 22.5 pg (26-34); Mean Corpuscular Volume 75.5 fl (80-100); Mean Platelet Volume 8.3 fl (7.4-10.4); Platelet Count Result 314 k/mm3 (150-375); Red Blood Count 3.51 M/mm3 (4.6-6.20); Red Cell Distribution Width 16.4 % (11.5-14.5); White Blood Count 9.5 K/mm3 (4.5-10.0)
[2019-11-18 05:25] LABS: Blood Urea Nitrogen 11 mg/dL (9-20); Calcium 8.3 mg/dL (8.4-10.2); Carbon Dioxide 30 mmol/L (22-30); Chloride 101 mmol/L (98-107); Estimated CRCL calculation 88 ml/min; Estimated Glomerular Filt Rate > 60; Glucose 85 mg/dL (75-110); Magnesium 2.1 mg/dL (1.6-2.3); Potassium 3.6 mmol/L (3.4-5.0); Sodium 137 mmol/L (137-145)
[2019-11-18] MEDS: LACTATED RINGERS 1,000 ML 150 ML IV CONT (07:16)
[2019-11-18 07:21] LABS: Glucose Point of Care 69 (65-105)
--- NOTE | 2019-11-18 07:38 | WPDANESEPPF ---
Anes - Initial Pre Proc Eval Procedure: Operation Date: 11/18/19 08:30 Proposed Procedures p Colonoscopy - Selvin Montero MD Date/Time: 11/18/19 07:38 Surgeon: Anahi Tracey PA-C Pre Op Diagnosis: Abdominal pain and diarrhea. Patient Data Age: 78 Gender: M Height: 5 ft 10 in Weight: 133.6 kg Last Vital Signs Temp 37.2 C 11/18/19 07:13 Pulse 89 11/18/19 07:13 Resp 18 11/18/19 07:13 BP 127/69 11/18/19 07:13 Pulse Ox 100 11/18/19 07:25 Allergies Allergy/AdvReac Type Severity Reaction Status Date / Time mold Allergy Unknown Sneezing Verified 11/18/19 07:12 Home Medications Medication Instructions Recorded Confirmed Type diltiazem HCl 360 mg 360 mg PO DAILY #90 cap 11/04/19 11/15/19 Rx capsule,extended release 24 hr furosemide 40 mg tablet 40 mg PO QAM #90 tablet 11/04/19 11/15/19 Rx potassium chloride 10 mEq 10 meq PO DAILY #90 cap 11/04/19 11/15/19 Rx capsule,extended release venlafaxine 75 mg tablet,extended 75 mg PO BID #180 tablet 11/04/19 11/15/19 Rx release 24 hr lisinopril 20 mg tablet 20 mg PO DAILY #90 tablet 11/12/19 11/15/19 Rx oxybutynin chloride 5 mg tablet 5 mg PO BID #180 tablet 11/12/19 11/15/19 Rx hyoscyamine sulfate 0.125 mg tablet 0.125 mg PO BID PRN #30 tablet 11/14/19 11/15/19 Rx tamsulosin 0.4 mg capsule 0.4 mg PO DAILY #90 cap 11/14/19 11/15/19 Rx simvastatin 20 mg PO QPM 11/15/19 11/15/19 History vitamin E 400 unit PO DAILY 11/15/19 11/15/19 History Laboratory Tests 11/15/19 11/18/19 11/18/19 11:36 04:55 04:55 WBC 9.5 K/mm3 K/mm3 (4.5-10.0) RBC 3.51 M/mm3 L M/mm3 (4.6-6.20) Hgb 7.9 g/dL L g/dL (14.0-18.0) Hct 26.5 % L % (42.0-52.0) MCV 75.5 fl L fl (80-100) MCH 22.5 pg L pg (26-34) MCHC 29.8 g/dl L g/dl (32-36) RDW 16.4 % H % (11.5-14.5) Plt Count 314 k/mm3 k/mm3 (150-375) MPV 8.3 fl fl (7.4-10.4) Sodium 137 mmol/L mmol/L (137-145) Potassium 3.6 mmol/L mmol/L (3.4-5.0) Chloride 101 mmol/L mmol/L (98-107) Carbon Dioxide 30 mmol/L mmol/L (22-30) BUN 11 mg/dL mg/dL (9-20) Creatinine 0.80 mg/dL mg/dL (0.7-1.3) Estim Creat Clear Calc 88 ml/min ml/min Estimated GFR > 60 (59 - ) Glucose 85 mg/dL mg/dL (75-110) POC Capillary Glucose Calcium 8.3 mg/dL L mg/dL (8.4-10.2) Magnesium 2.1 mg/dL mg/dL (1.6-2.3) Blood Type AB Negative Antibody Screen Negative Crossmatch See Detail 11/18/19 07:18 WBC RBC Hgb Hct MCV MCH MCHC RDW Plt Count MPV Sodium Potassium Chloride Carbon Dioxide BUN Creatinine Estim Creat Clear Calc Estimated GFR Glucose POC Capillary Glucose 69 mg/dl mg/dl (65-105) Calcium Magnesium Blood Type Antibody Screen Crossmatch Patient hx anesthesia problems: none Family hx anesthesia problems: none [facility] Past Medical History Medical History Atrial fibrillation (Unknown) No longer on systemic anticoagulation for reasons unclear to the patient. Benign prostatic hyperplasia GERD (gastroesophageal reflux disease) (Unknown) Hyperlipidemia Hypertension (Unknown) Obstructive sleep apnea on CPAP (Unknown) Compliant with CPAP. Surgical History Surgical History History of arthroscopy of right knee (~1998) History of total left knee replacement (~2000) Family History Family History Father Family history of coronary artery disease Acute myocardial infarction Mother Acute myocardial infarction Social History So
--- NOTE | 2019-11-18 09:09 | PC.NURSE ---
0700 pt to GI lab per bed for colonoscopy
[2019-11-18] MEDS: TAMSULOSIN HCL 0.4 MG CAPSULE PO (09:30)
[2019-11-18] MEDS: POTASSIUM CHLORIDE 10 MEQ TABLET.ER PO (09:30)
[2019-11-18] MEDS: lisinopriL 20 MG TABLET PO (09:30)
[2019-11-18] MEDS: OXYBUTYNIN CHLORIDE 5 MG TABLET PO ×2 (09:30→16:43)
[2019-11-18] MEDS: VENLAFAXINE HCL XR 75 MG CAP.ER.24H PO ×2 (09:30→16:43)
[2019-11-18] MEDS: FUROSEMIDE 40 MG TABLET PO (09:30)
--- NOTE | 2019-11-18 11:24 | PM.PNGS ---
Progress Note: A&P Assessment and Plan (1) Partial bowel obstruction: Code(s): K56.600 - Partial intestinal obstruction, unspecified as to cause Status: Acute Assessment and Plan: This seems to have resolved this patient has had some stools and is not having either nausea or vomiting. (2) Colonic mass: Onset Date: Unknown Code(s): K63.89 - Other specified diseases of intestine Status: Acute Assessment and Plan: Seen with bowel wall thickening in the area of the right colon just below the hepatic flexure. This was seen on CT scan Monday. Seen today had by colonoscopy and appears to be a nearly circumferential lesion consistent with possible adenocarcinoma in the proximal ascending colon. (See report). Discussed his care with the hospitalist. I think we can hold off on doing any core biopsy of his liver lesions for now until we get the biopsies back from his colon since this is a fairly obvious potential primary site for the liver tumors. I also feel that it may be jones to consider a cystoscopy and inspection of the bladder neck and bladder in view of his CT scan findings. This will help us to be sure that there is a low possibility that the tumor in his liver is urothelial in origin. (3) Anxiety: Onset Date: ~11/15/19 Code(s): F41.9 - Anxiety disorder, unspecified Status: Acute Assessment and Plan: Nurses report patient less anxious today. (4) Microcytic anemia: Onset Date: Unknown Code(s): D50.9 - Iron deficiency anemia, unspecified Status: Acute Assessment and Plan: However there is a hemoglobin of 13.8 in the old records from [place] in December of last year. (5) Obstructive sleep apnea on CPAP: Onset Date: Unknown Code(s): G47.33 - Obstructive sleep apnea (adult) (pediatric); Z99.89 - Dependence on other enabling machines and devices Status: Acute Assessment and Plan: Using his CPAP from the hospital. (6) Morbid obesity: Onset Date: Unknown Code(s): E66.01 - Morbid (severe) obesity due to excess calories Status: Acute (7) GERD (gastroesophageal reflux disease): Onset Date: Unknown Code(s): K21.9 - Gastro-esophageal reflux disease without esophagitis Status: Acute (8) Hypertension: Onset Date: Unknown Code(s): I10 - Essential (primary) hypertension Status: Acute Assessment and Plan: Well controlled (9) Atrial fibrillation: Onset Date: Unknown Code(s): I48.91 - Unspecified atrial fibrillation Status: Acute Assessment and Plan: apparently no longer on oral anticoagulation. Rate well controlled at this time. (10) Benign prostatic hyperplasia: Code(s): N40.0 - Benign prostatic hyperplasia without lower urinary tract symptoms Status: Acute Assessment and Plan: Consider checking a PSA study on the patient in view of his liver metastasis and enlarged prostate if this not been done recently as an outpatient. Subjective Subjective Date/Time Seen: 11/18/19 11:24 Patient seen after his colonoscopy today. I discussed the findings with him also. He seemed to be well alert and oriented today. Denied abdominal pain. Review of Systems Constitutional: Constitutional: Reports as per HPI, Reports no additional constitutional complaints, Denies chills, Denies excessive sweating, Reports fatigue, Denies fever(s) and Denies headache(s) Eyes: Eyes: Denies change in vision and Denies loss of vision ENT: Denies dysphagia, Denies dizziness, Denies headache(s), Denies odynophagia and Reports other (Mucous Membranes moist.) Cardiovascular: Cardiovascular: Denies chest pain, Denies syncope, Denies leg edema, Denies lightheadedness, Denies radiating jaw, neck or arm pain, Denies dyspnea and Reports dyspnea on exertion Respiratory: Respiratory: Denies cough, Denies pain on inspiration, Denies dyspnea,
--- NOTE | 2019-11-18 14:19 | PM.IMPN ---
Progress Note: A&P Assessment and Plan (1) Colonic mass: Onset Date: Unknown Code(s): K63.89 - Other specified diseases of intestine Status: Acute Assessment and Plan: -----colon mass seen on CT and again today during the colonoscopy. This was biopsied and we are waiting for the results. CEA is normal. CT also shows liver Mets which could be consistent with colon cancer. I spoke with Dr. Leslie today and the plan is to await the pathology and then consider liver biopsy depending on these results. I have talked to Dr. Montero who is afraid that the patient may continue to have obstruction, although he was able to pass the scope today. He recommends speaking with surgery to see their plan if they are going to possibly do a diversion surgery or something to help prevent obstruction. I have called Dr. Lockwood and I am awaiting his call back. Dr. Leslie also mentioned about placing a port as well. For now, will keep him on clear liquids in case they want to do a biopsy or some kind of surgery in the near future. (2) Abnormal CT scan: Code(s): R93.89 - Abnormal findings on diagnostic imaging of other specified body structures Status: Acute Assessment and Plan: -----see above (3) Partial bowel obstruction: Code(s): K56.600 - Partial intestinal obstruction, unspecified as to cause Status: Acute Assessment and Plan: -----the patient has had multiple bowel movements and is tolerating a clear liquid diet, which will be continued. (4) Microcytic anemia: Onset Date: Unknown Code(s): D50.9 - Iron deficiency anemia, unspecified Status: Acute Assessment and Plan: -----7.9 today after 1 unit 11/17/19. Will continue to monitor H&H. May consider iron supplementation once surgery planned is set. (5) Atrial fibrillation: Onset Date: Unknown Code(s): I48.91 - Unspecified atrial fibrillation Status: Acute Assessment and Plan: -----chronic and rate controlled. Not on any anticoagulation. Because of his new diagnosis and significant anemia, no plan to start anticoagulation at this time. Continue diltiazem (6) Hypertension: Onset Date: Unknown Code(s): I10 - Essential (primary) hypertension Status: Acute Assessment and Plan: -----last blood pressure 120/73. Continue lisinopril, Cardizem and Lasix (7) Obstructive sleep apnea on CPAP: Onset Date: Unknown Code(s): G47.33 - Obstructive sleep apnea (adult) (pediatric); Z99.89 - Dependence on other enabling machines and devices Status: Acute Assessment and Plan: -----continue CPAP. (8) Benign prostatic hyperplasia: Code(s): N40.0 - Benign prostatic hyperplasia without lower urinary tract symptoms Status: Acute Assessment and Plan: -----continue tamsulosin. CT showed enlargement and calcification. (9) Hematuria: Code(s): R31.9 - Hematuria, unspecified Status: Acute Assessment and Plan: -----blood seen in the UA with CT abnormalities. Patient is not having any symptoms of UTI at this time and his urine culture is negative. The CT shows: There is a prominent soft tissue mass at the base of the urinary bladder which may represent prostatomegaly, prostate cancer or less likely urinary bladder cancer. There is diffuse moderate thickening of the urinary bladder wall likely related to bladder outlet obstruction associated with prostate enlargement. Urology plans to do outpatient cystoscopy. I have spoken with them today and they do not think that his liver Mets have anything to do with this abnormal finding. (10) Anxiety: Onset Date: ~11/15/19 Code(s): F41.9 - Anxiety disorder, unspecified Status: Acute Assessment and Plan: ----improved. He has Xanax p.r.n. which he has not needed so far Subjective Date/time seen: 11/18/19
--- NOTE | 2019-11-18 16:18 | CONS_ITS ---
DATE OF CONSULTATION: 11/18/2019 REASON FOR CONSULTATION: Metastatic colon cancer. HISTORY OF PRESENTING ILLNESS: This is an 78-year-old pleasant male with history of atrial fibrillation and sleep apnea, came into the hospital with complaint of lower abdominal pain, off and on, for last 4-5 days duration with episode of diarrhea. He denies any melena and hematochezia. He has been feeling quite tired and fatigued. He denies any weight loss. CT scan was done on November 14 that showed suspected carcinoma in the ascending colon with hepatic metastasis along with prostate enlargement and calcification. The patient had colonoscopy done on November 17 that showed partially obstructing large size fungating and malignant-appearing mass in the mid ascending colon and biopsies were taken. Pathology report is pending. REVIEW OF SYSTEMS: 12-point review of system was reviewed and as per HPI, otherwise negative. PAST MEDICAL HISTORY: Atrial fibrillation, BPH, GERD, hyperlipidemia, obstructive sleep apnea, hypertension. PAST SURGICAL HISTORY: Right knee arthroscopy and left total knee replacement. MEDICATIONS: Home medications reviewed. ALLERGIES: REVIEWED. FAMILY HISTORY: Negative for malignancy. Family history is positive for heart disease. SOCIAL HISTORY: The patient and the patient's both live in [facility] for last 14 years duration. The patient is retired. Denies any history of smoking and drinks alcohol occasionally. PHYSICAL EXAMINATION: GENERAL: This patient is a well-developed, well-nourished, male, no apparent distress, alert and oriented. VITAL SIGNS: As per nursing note. HEENT: Normocephalic, atraumatic. Clear oropharynx. LUNGS: Clear to auscultation bilaterally. CARDIOVASCULAR: Regular rate and rhythm. No murmurs. ABDOMEN: Soft, nontender, nondistended. Bowel sounds are positive in all 4 quadrants. No hepatosplenomegaly. EXTREMITIES: No edema. NEUROLOGIC: Exam is grossly intact. LABORATORY DATA: WBC 9.5, hemoglobin 7.9, MCV 75.5, platelets 314,000. Creatinine 0.8, total bilirubin 0.3, AST 36, ALT 23, CEA 1.4, iron 26, iron saturation 11%, ferritin 47. ASSESSMENT AND PLAN: 1. Likely metastatic colon cancer with liver involvement. The patient is now status post colonoscopy and biopsy of mid ascending colon mass done on November 18, 2019, and pathology is pending. Prior to that, the patient had CT abdomen and pelvis done on November 14 when he presented to the ER with abdominal pain and diarrhea for almost 4-[address] scan showed multiple space-occupying solid mass lesions of the liver measuring 2.5 cm consistent with hepatic metastasis along with thickening of the colonic wall in the ascending colon suspicious for colon cancer. We will wait for the final pathology report. If pathology comes back positive for colon cancer, then we will proceed with liver biopsy given the fact that CEA is normal. The patient may also need MediPort placement prior to the discharge. I have answered all the questions to the patient's satisfaction. 2. Anemia. This is likely secondary to iron-deficiency anemia with recent diagnosis of likely colon cancer. I will start him on IV iron infusion. ALYX ARANA M.D. TRUST MAIL CLERK TRUST MAIL CLERK D I MT: Luis Manuel
[2019-11-19 03:13] VITALS: PULSE 80; RESP 17; O2SAT 97
[2019-11-19 04:57] LABS: Hematocrit 27.9 % (42.0-52.0); Hemoglobin 8.1 g/dL (14.0-18.0)
[2019-11-19 05:14] LABS: Blood Urea Nitrogen 10 mg/dL (9-20); Calcium 8.3 mg/dL (8.4-10.2); Carbon Dioxide 31 mmol/L (22-30); Chloride 100 mmol/L (98-107); Estimated CRCL calculation 100 ml/min; Estimated Glomerular Filt Rate > 60; Glucose 92 mg/dL (75-110); Potassium 3.8 mmol/L (3.4-5.0); Sodium 135 mmol/L (137-145)
[2019-11-19 06:00] VITALS: BP 109/60; PULSE 83; RESP 21; TEMP 36.1; O2SAT 100
[2019-11-19 08:00] VITALS: PULSE 83; RESP 21; O2SAT 100
--- NOTE | 2019-11-19 08:49 | WPDGIPROGNO ---
Progress Note: A&P Additional Plan Patient comfortable this morning. Tolerating liquid diet he denies abdominal pain. Physical exam reveals patient to be alert. Afebrile. Abdomen is obese. No organomegaly can be identified. Nontender. Impression 1. Ascending colon mass. Grossly consistent with carcinoma. Final histology pending. He does have partial blockage of the large intestine but endoscope was able to pass beyond this lesion. Surgery following for possible decompression/resection. 2. Liver metastases. Evident on CT scan. Liver biopsy may not be necessary if carcinoma confirmed in colon. Will leave this to the discretion of the Oncology Service. 3. Abnormal CT scan suggestive of a bladder lesion perhaps prostatic enlargement. Cystoscopy was requested. Await final histology on colon mass. Surgery following. Uncertain if surgery will be required at this time. Patient remains on liquid diet until they feel safe to advance. Low residue diet suggested otherwise. Subjective Date/time seen: 11/19/19 08:49 Objective Data Vital Signs Vital Signs: Vital Signs - 24 hr 11/18/19 08:54 11/18/19 09:04 11/18/19 14:43 Temperature 35.9 C L Pulse Rate 73 73 64 Respiratory Rate 25 H 25 H 20 Blood Pressure 113/71 120/73 100/57 L Pulse Oximetry 96 96 91 11/18/19 20:30 11/18/19 22:00 11/19/19 03:13 Temperature 36.2 C L Pulse Rate 82 82 80 Respiratory Rate 20 20 17 Blood Pressure 113/74 Pulse Oximetry 96 98 97 11/19/19 06:00 11/19/19 08:00 Temperature 36.1 C L Pulse Rate 83 83 Respiratory Rate 21 H 21 H Blood Pressure 109/60 Pulse Oximetry 100 100 Intake/Output Intake/Output: Intake & Output 11/16/19 11/17/19 11/18/19 11/19/19 23:59 23:59 23:59 23:59 Intake Total 2930 1808 1690 400 Output Total 1100 500 Balance 1830 1808 1690 -100 Meds/Results Medications: Active Medications Generic Name Dose Route Start Last Admin Trade Name Freq PRN Reason Stop Dose Admin Acetaminophen 650 mg 11/15/19 17:05 11/17/19 21:18 Tylenol Tablet PO 650 mg Q6H PRN Administration Mild Pain (1-3) or Fever Hydrocodone Bitart/Acetaminophen 1 tab 11/15/19 17:05 11/18/19 16:46 [place] 5-325 Mg PO 1 tab Q6H PRN Administration Pain Rated 4-10 Alprazolam 0.25 mg 11/16/19 08:45 Xanax PO TID PRN Anxiety Diltiazem HCl 360 mg 11/16/19 09:00 11/18/19 09:29 Cardizem Cd PO 12/16/19 09:01 360 mg DAILY LESLIE Administration Furosemide 40 mg 11/16/19 09:00 11/18/19 09:30 Lasix Tablet PO 40 mg QAM LESLIE Administration Iron Sucrose 500 mg/ Sodium 275 mls @ 78.571 mls/hr 11/19/19 09:00 Chloride IVPB 11/21/19 09:01 QAM [facility] Lisinopril 20 mg 11/16/19 09:00 11/18/19 09:30 Prinivil PO 20 mg DAILY LESLIE Administration Ondansetron HCl 4 mg 11/15/19 11:28 Zofran Inj IV PUSH Q4H PRN Nausea Oxybutynin Chloride 5 mg 11/16/19 09:00 11/18/19 16:43 Ditropan PO 5 mg BID LESLIE Administration Potassium Chloride 10 meq 11/16/19 09:00 11/18/19 09:30 Kcl Tablet PO 10 meq DAILY LESLIE Administration Tamsulosin HCl 0.4 mg 11/16/19 09:00 11/18/19 09:30 Flomax PO 0.4 mg DAILY LESLIE Administration Venlafaxine HCl 75 mg 11/16/19 09:00 11/18/19 16:43 Effexor Xr PO 75 mg BID LESLIE Administration Radiology Results: ITS Impressions Abdomen/Pelvis CT 11/15/19 10:18 IMPRESSION: Suspected carcinoma the ascending colon with hepatic metastatic disease Mild small bowel dilatation and air-fluid levels, air-fluid levels of ascending colon, possibly secondary to partial obstruction due to the ascending colon mass Diverticulosis of the colon Nonspecific up to 1.3 cm left and 10 mm right indeterminate renal lesions Prostate enlargement and calcification Labs Labs: Laboratory Results - last 24 hr 11/19/19 11/19/19 04:42 04:42 Hgb 8.1 L Hct 27.9 L Sodium 135 L Potassium
[2019-11-19] MEDS: IRON SUCROSE COMPLEX 500 MG in SODIUM CHLORIDE 0.9% IV 250 ML 78.6 MG IVPB (08:57)
[2019-11-19] MEDS: OXYBUTYNIN CHLORIDE 5 MG TABLET PO ×2 (08:58→16:39)
[2019-11-19] MEDS: POTASSIUM CHLORIDE 10 MEQ TABLET.ER PO (08:58)
[2019-11-19] MEDS: TAMSULOSIN HCL 0.4 MG CAPSULE PO (08:58)
[2019-11-19] MEDS: VENLAFAXINE HCL XR 75 MG CAP.ER.24H PO ×2 (08:58→16:39)
[2019-11-19] MEDS: lisinopriL 20 MG TABLET PO (08:58)
[2019-11-19] MEDS: FUROSEMIDE 40 MG TABLET PO (08:58)
--- NOTE | 2019-11-19 09:30 | PM.IMPN ---
Progress Note: A&P Assessment and Plan (1) Colonic mass: Onset Date: Unknown Code(s): K63.89 - Other specified diseases of intestine Status: Acute Assessment and Plan: Colon mass noted on CT and colonoscopy 11/[address] Montero. This mass seemed to have been causing a partial bowel obstruction. Mass was biopsied, awaiting path results. CEA within normal limits. CT also demonstrates what may be metastasis to the liver. GI, general surgery, and oncology following - appreciate further recommendations likely to come after pathology results come back. Notes indicate Dr. Leslie also mentioned potentially placing a port as well. For now, he remains on a full liquid diet. (2) Partial bowel obstruction: Qualifiers: Intestinal obstruction type: other intestinal obstruction Qualified Code(s): K56.690 - Other partial intestinal obstruction Code(s): K56.600 - Partial intestinal obstruction, unspecified as to cause Status: Acute Assessment and Plan: Tolerating a full liquid diet. Last BM was a small BM this morning, passing flatus. No abdominal pain, nausea, or vomiting today. (3) Microcytic anemia: Onset Date: Unknown Code(s): D50.9 - Iron deficiency anemia, unspecified Status: Acute Assessment and Plan: H&H low but stable. Recieved 1 unit packed RBC 11/16. Will continue to monitor H&H. Dr Leslie started IV iron. (4) Atrial fibrillation: Onset Date: Unknown Qualifiers: Atrial fibrillation type: unspecified Qualified Code(s): I48.91 - Unspecified atrial fibrillation Code(s): I48.91 - Unspecified atrial fibrillation Status: Acute Assessment and Plan: Chronic, rate controlled on oral diltiazem. Not on any anticoagulation, no plan to start any at this time based on his new medical issues and anemia. (5) Hypertension: Onset Date: Unknown Qualifiers: Hypertension type: essential hypertension Qualified Code(s): I10 - Essential (primary) hypertension Code(s): I10 - Essential (primary) hypertension Status: Acute Assessment and Plan: Last BP 109/60. Maintained on lisinopril, Cardizem and Lasix. Monitor BP. (6) Obstructive sleep apnea on CPAP: Onset Date: Unknown Code(s): G47.33 - Obstructive sleep apnea (adult) (pediatric); Z99.89 - Dependence on other enabling machines and devices Status: Acute Assessment and Plan: CPAP. (7) Benign prostatic hyperplasia: Qualifiers: Lower urinary tract symptom presence: symptoms absent Qualified Code(s): N40.0 - Benign prostatic hyperplasia without lower urinary tract symptoms Code(s): N40.0 - Benign prostatic hyperplasia without lower urinary tract symptoms Status: Acute Assessment and Plan: Continue tamsulosin. CT showed enlargement and calcification. No issues today per patient. (8) Hematuria: Qualifiers: Hematuria type: unspecified type Qualified Code(s): R31.9 - Hematuria, unspecified Code(s): R31.9 - Hematuria, unspecified Status: Acute Assessment and Plan: Noted on UA with CT abnormalities. Asymptomatic and urine culture is negative. The CT shows: There is a prominent soft tissue mass at the base of the urinary bladder which may represent prostatomegaly, prostate cancer or less likely urinary bladder cancer. There is diffuse moderate thickening of the urinary bladder wall likely related to bladder outlet obstruction associated with prostate enlargement. Previous provider discussed with urology; Urology plans to do outpatient cystoscopy. (9) Anxiety: Onset Date: ~11/15/19 Code(s): F41.9 - Anxiety disorder, unspecif
--- NOTE | 2019-11-19 13:33 | PM.PNGS ---
Progress Note: A&P Assessment and Plan (1) Partial bowel obstruction: Qualifiers: Intestinal obstruction type: other intestinal obstruction Qualified Code(s): K56.690 - Other partial intestinal obstruction Code(s): K56.600 - Partial intestinal obstruction, unspecified as to cause Status: Acute Assessment and Plan: This seems to have resolved. Bowels functioning and tolerating a diet without any complaints. Patient advanced to a low fiber diet and dietitian consulted for education. (2) Colonic mass: Onset Date: Unknown Code(s): K63.89 - Other specified diseases of intestine Status: Acute Assessment and Plan: Seen with bowel wall thickening in the area of the right colon just below the hepatic flexure. This was seen on CT scan Monday. Colonoscopy on 11/18/19 shows a nearly circumferential lesion consistent with possible adenocarcinoma in the proximal ascending colon. (See report). Biopsies pending. CEA normal. I discussed his care with Dr. Lockwood, who has also spoke with Dr. Leslie, regarding the plan. The colon is an obvious potential primary site for the liver metastasis, although he had a normal CEA, so there is a concern there may be another primary source for the liver lesions. Therefore, we ordered an ultrasound-guided liver biopsy to be done in Radiology tomorrow by Dr. Ortiz. He does have an abnormality of the bladder and it appears Urology is planning for cystoscopy as an outpatient. While awaiting the biopsy results, we will also tentatively plan for Port-A-Cath placement for the patient on . The patient has agreed to neoadjunctive chemotherapy and Oncology is requesting port placement. (3) Microcytic anemia: Onset Date: Unknown Code(s): D50.9 - Iron deficiency anemia, unspecified Status: Acute Assessment and Plan: Hgb remains stable, 8.1 today. Oncology has initiated iron infusions. (4) Obstructive sleep apnea on CPAP: Onset Date: Unknown Code(s): G47.33 - Obstructive sleep apnea (adult) (pediatric); Z99.89 - Dependence on other enabling machines and devices Status: Acute (5) Morbid obesity: Onset Date: Unknown Code(s): E66.01 - Morbid (severe) obesity due to excess calories Status: Acute (6) GERD (gastroesophageal reflux disease): Onset Date: Unknown Code(s): K21.9 - Gastro-esophageal reflux disease without esophagitis Status: Acute (7) Hypertension: Onset Date: Unknown Qualifiers: Hypertension type: essential hypertension Qualified Code(s): I10 - Essential (primary) hypertension Code(s): I10 - Essential (primary) hypertension Status: Acute (8) Atrial fibrillation: Onset Date: Unknown Qualifiers: Atrial fibrillation type: unspecified Qualified Code(s): I48.91 - Unspecified atrial fibrillation Code(s): I48.91 - Unspecified atrial fibrillation Status: Acute Assessment and Plan: Apparently no longer on oral anticoagulation. Rate well controlled at this time. (9) Benign prostatic hyperplasia: Qualifiers: Lower urinary tract symptom presence: symptoms absent Qualified Code(s): N40.0 - Benign prostatic hyperplasia without lower urinary tract symptoms Code(s): N40.0 - Benign prostatic hyperplasia without lower urinary tract symptoms Status: Acute Assessment and Plan: Consider checking a PSA study on the patient in view of his liver metastasis and enlarged prostate if this not been done recently as an outpatient. (10) Anxiety: Onset Date: ~11/15/19 Code(s): F41.9 - Anxiety disorder, unspecified Status: Acute Additional Plan Discussed the patient's case and formulated the plan of care with Dr. Lockwood today. Subjective Subjective Date/Time Seen: 11/19/19 11:33 Patient reports: no new complaints, tolerating liquids well (full liquids), flatus and bowel moveme
[2019-11-19 14:00] VITALS: BP 108/59; PULSE 94; RESP 18; TEMP 36.7; O2SAT 96
--- NOTE | 2019-11-19 16:20 | PCDIET ---
Nutrition Education for a low fiber diet complete: Goal:Eat low fiber foods until cleared by MD to increase fiber Pt current nutrition is low fiber diet Nutrition recommendation: Agree Last recorded weight is 134.9 kg. Bowel Motility: Diarrhea today Labs Reviewed:na 135, Hgb 8.1, Hct 27.9 Meds Noted: KCL, Fe Additional Notes: Pt instructed on a low fiber diet today. Getting liver biopsy tomorrow and a port a cath on . Possible adenocarcinoma. Pt eats salads a lot and raisin bran every morning. Instructed today to limit those foods and focus on well cooked foods that are tender and soft, mashable w/fork. No raw veggies, nuts, seeds and peeled soft fruit. Pt encouraged to chew foods well and limit fiber to 10-12gm/day. Pt encouraged to do white bread, rice, and pasta and avoid whole grains at this time. Pt encouraged to increase fiber up to 35g/day when MD allows. Handouts attached to d/c paperwork. Pt encouraged to call if questions arise once he gets home.
--- NOTE | 2019-11-19 16:53 | WPDONCPN ---
Progress Note: A/P - Additional Plan Likely metastatic colon cancer with liver involvement status post below nausea BM biopsy. Pathology report is pending. I have discussed this case with Dr. Lockwood again today. We decided to proceed with liver biopsy. Patient will also need MediPort placement. Iron deficiency anemia. Patient is going to receiving IV iron infusion. Hemoglobin has slightly improved. - Time Spent With Patient Total time spent is greater than 50% in coordination of care (as documented) at patient's floor/unit and/or counseling patient: 15 - 25 minutes Subjective Interval history: Metastatic colon cancer Iron deficiency anemia Review of Systems - Review of Systems Patient denies any abdominal pain. Denies any nausea vomiting. Denies any melena hematochezia. Remains tired and fatigued. No other new complaints. - Neurologic Denies syncope, Denies headache(s), Denies loss of vision, Denies tingling, Denies tremor(s) Exam Vital signs: Temp Pulse Resp BP Pulse Ox 36.7 C 94 18 108/59 L 96 11/19/19 14:00 11/19/19 14:00 11/19/19 14:00 11/19/19 14:00 11/19/19 14:00 Lungs are clear to auscultation bilaterally Cardiovascular regular rate rhythm no murmurs Abdomen soft nontender nondistended bowel sounds are positive Extremities no edema PN: Objective Data - Labs CBC & Chem 7: 11/19/19 04:42 11/19/19 04:42 Labs: Laboratory Results - last 24 hr 11/19/19 11/19/19 04:42 04:42 Hgb 8.1 L Hct 27.9 L Sodium 135 L Potassium 3.8 Chloride 100 Carbon Dioxide 31 H BUN 10 Creatinine 0.70 Estim Creat Clear Calc 100 Estimated GFR > 60 Glucose 92 Calcium 8.3 L
[2019-11-19 22:00] VITALS: BP 107/59; PULSE 81; RESP 20; TEMP 37.2; O2SAT 99
[2019-11-19 22:36] VITALS: PULSE 82; RESP 18; O2SAT 95
[2019-11-20] VITALS (7 sets, daily range): BP systolic 104–115; BP diastolic 58–62; PULSE 65–104; RESP 16–23; TEMP 36.1–36.7; O2SAT 92–98
[2019-11-20 04:56] LABS: Hematocrit 27.5 % (42.0-52.0); Mean Corpuscular HGB Conc 29.1 g/dl (32-36); Mean Corpuscular Hemoglobin 22.3 pg (26-34); Mean Corpuscular Volume 76.6 fl (80-100); Mean Platelet Volume 8.7 fl (7.4-10.4); Platelet Count Result 382 k/mm3 (150-375); Red Blood Count 3.59 M/mm3 (4.6-6.20); White Blood Count 8.9 K/mm3 (4.5-10.0)
[2019-11-20 05:02] LABS: INR 1.4; Prothrombin Time 16.6 Seconds (11.1-14.7)
[2019-11-20 05:03] LABS: Partial Thromboplastin Time 43.2 SECONDS (22.3-36.8)
[2019-11-20 05:12] LABS: Potassium 3.8 mmol/L (3.4-5.0)
[2019-11-20 05:17] LABS: Prealbumin 5.3 mg/dL (17.6-36.0)
[2019-11-20] MEDS: IRON SUCROSE COMPLEX 500 MG in SODIUM CHLORIDE 0.9% IV 250 ML 78.6 MG IVPB (08:43)
[2019-11-20] MEDS: POTASSIUM CHLORIDE 10 MEQ TABLET.ER PO (08:44)
[2019-11-20] MEDS: FUROSEMIDE 40 MG TABLET PO (08:44)
[2019-11-20] MEDS: OXYBUTYNIN CHLORIDE 5 MG TABLET PO ×2 (08:44→17:36)
[2019-11-20] MEDS: VENLAFAXINE HCL XR 75 MG CAP.ER.24H PO ×2 (08:45→17:36)
[2019-11-20] MEDS: TAMSULOSIN HCL 0.4 MG CAPSULE PO (08:45)
[2019-11-20] MEDS: ACETAMINOPHEN 325 MG TABLET 650 MG PO (08:48)
[2019-11-20] MEDS: lisinopriL 20 MG TABLET PO (08:48)
--- NOTE | 2019-11-20 09:05 | PM.PNGS ---
Progress Note: A&P Assessment and Plan (1) Partial bowel obstruction: Qualifiers: Intestinal obstruction type: other intestinal obstruction Qualified Code(s): K56.690 - Other partial intestinal obstruction Code(s): K56.600 - Partial intestinal obstruction, unspecified as to cause Status: Acute Assessment and Plan: This seems to have resolved. Bowels functioning and tolerating a diet without any complaints. Patient advanced to a low fiber diet and dietitian consulted for education. (2) Colonic mass: Onset Date: Unknown Code(s): K63.89 - Other specified diseases of intestine Status: Acute Assessment and Plan: Seen with bowel wall thickening in the area of the right colon just below the hepatic flexure. This was seen on CT scan last Monday. Colonoscopy on 11/18/19 shows a nearly circumferential lesion consistent with possible adenocarcinoma in the proximal ascending colon. (See report). Biopsies pending. CEA normal. Dr. Lockwood has also spoken with Dr. Leslie, regarding the plan. The colon is an obvious potential primary site for the liver metastasis, although he had a normal CEA, so there is a concern there may be another primary source for the liver lesions. Therefore, we ordered an ultrasound-guided liver biopsy to be done in Radiology today by Dr. Ortiz. He does have BPH and an abnormality of the bladder and it appears Urology is planning for cystoscopy as an outpatient. While awaiting the biopsy results, we will also tentatively plan for Port-A-Cath placement for the patient on . The patient has agreed to neoadjunctive chemotherapy and Oncology is requesting port placement. I also questioned Dr. Leslie and he feels that if we get started on neoadjuvant chemotherapy that most likely the patient will not need surgical intervention for obstruction of the right colon malignancy. He feels this should shrink it enough to maintain patency. (3) Microcytic anemia: Onset Date: Unknown Code(s): D50.9 - Iron deficiency anemia, unspecified Status: Acute Assessment and Plan: Hgb remains stable, 8.1 today. Oncology has initiated iron infusions. (4) Obstructive sleep apnea on CPAP: Onset Date: Unknown Code(s): G47.33 - Obstructive sleep apnea (adult) (pediatric); Z99.89 - Dependence on other enabling machines and devices Status: Acute (5) Morbid obesity: Onset Date: Unknown Code(s): E66.01 - Morbid (severe) obesity due to excess calories Status: Acute Assessment and Plan: Patient has limited is diet some because of the malignancy. We do not really know if he has lost some weight. His pre-albumin tested today was only 5.3 so he does need some nutritional support in order to build his immunity. Also will need to be on a low fiber diet in order to try to prevent obstruction at the area of the right colon. (6) GERD (gastroesophageal reflux disease): Onset Date: Unknown Code(s): K21.9 - Gastro-esophageal reflux disease without esophagitis Status: Acute (7) Hypertension: Onset Date: Unknown Qualifiers: Hypertension type: essential hypertension Qualified Code(s): I10 - Essential (primary) hypertension Code(s): I10 - Essential (primary) hypertension Status: Acute Assessment and Plan: As per medications by the hospitalist (8) Atrial fibrillation: Onset Date: Unknown Qualifiers: Atrial fibrillation type: unspecified Qualified Code(s): I48.91 - Unspecified atrial fibrillation Code(s): I48.91 - Unspecified atrial fibrillation Status: Acute Assessment and Plan: Apparently no longer on oral anticoagulation. Rate well controlled at this time. (9) Benign prostatic hyperplasia: Qualifiers: Lower urinary tract symptom presence: symptoms absent Qualified Code(s): N40.0 - Benign prostatic hyperplasia without lower uri
--- NOTE | 2019-11-20 09:24 | PM.IMPN ---
Progress Note: A&P Assessment and Plan (1) Colonic mass: Onset Date: Unknown Code(s): K63.89 - Other specified diseases of intestine Status: Acute Assessment and Plan: Colon mass noted on CT and on colonoscopy 11/[address] Montero. This mass seemed to have been causing a partial bowel obstruction. Mass was biopsied; path results late this AM after my encounter are showing poorly differentiated colorectal adenocarcinoma. Returned to bedside this afternoon to discuss path results. CT also demonstrates what may be metastasis to the liver. GI, general surgery, and oncology following - appreciate further recommendations. Plan is for liver biopsy today and Port A Cath placement tomorrow afternoon. Discussed with Dr Lockwood. Anticipate possible discharge ?tomorrow after port placement in afternoon. (2) Partial bowel obstruction: Qualifiers: Intestinal obstruction type: other intestinal obstruction Qualified Code(s): K56.690 - Other partial intestinal obstruction Code(s): K56.600 - Partial intestinal obstruction, unspecified as to cause Status: Acute Assessment and Plan: Yesterday tolerating a full liquid diet, now NPO for biopsy. Last BM was a small BM this morning, passing flatus. No abdominal pain, nausea, or vomiting today. (3) Microcytic anemia: Onset Date: Unknown Code(s): D50.9 - Iron deficiency anemia, unspecified Status: Acute Assessment and Plan: H&H low but stable. Recieved 1 unit packed RBC 11/16. Will continue to monitor H&H. Dr Leslie started IV iron. (4) Atrial fibrillation: Onset Date: Unknown Qualifiers: Atrial fibrillation type: unspecified Qualified Code(s): I48.91 - Unspecified atrial fibrillation Code(s): I48.91 - Unspecified atrial fibrillation Status: Acute Assessment and Plan: Chronic, rate controlled on oral diltiazem. Not on any anticoagulation, no plan to start any at this time based on his new medical issues and anemia. (5) Hypertension: Onset Date: Unknown Qualifiers: Hypertension type: essential hypertension Qualified Code(s): I10 - Essential (primary) hypertension Code(s): I10 - Essential (primary) hypertension Status: Acute Assessment and Plan: Last BP 107/62. Maintained on lisinopril, Cardizem and Lasix. Monitor BP. (6) Obstructive sleep apnea on CPAP: Onset Date: Unknown Code(s): G47.33 - Obstructive sleep apnea (adult) (pediatric); Z99.89 - Dependence on other enabling machines and devices Status: Acute Assessment and Plan: CPAP. (7) Benign prostatic hyperplasia: Qualifiers: Lower urinary tract symptom presence: symptoms absent Qualified Code(s): N40.0 - Benign prostatic hyperplasia without lower urinary tract symptoms Code(s): N40.0 - Benign prostatic hyperplasia without lower urinary tract symptoms Status: Acute Assessment and Plan: Continue tamsulosin. CT showed enlargement and calcification. No issues today per patient. (8) Hematuria: Qualifiers: Hematuria type: unspecified type Qualified Code(s): R31.9 - Hematuria, unspecified Code(s): R31.9 - Hematuria, unspecified Status: Acute Assessment and Plan: Noted on UA with CT abnormalities. Asymptomatic and urine culture is negative. The CT shows: There is a prominent soft tissue mass at the base of the urinary bladder which may represent prostatomegaly, prostate cancer or less likely urinary bladder cancer. There is diffuse moderate thickening of the urinary bladder wall likely related to bladder outlet obstruction associated with prostate enlargement. Previous provider discussed with urology; Urology p
--- NOTE | 2019-11-20 10:08 | WPDGIPROGNO ---
Progress Note: A&P Additional Plan Patient comfortable this morning. Currently on low-fat residue diet. Denies complaints of abdominal pain. Passing stools. Physical exam reveals patient be alert. Vital signs stable. HEENT exam reveals him to be anicteric. Lungs are clear to auscultation and percussion. Heart is without murmur. Abdomen is obese soft and nontender. Labs reveal histology of ascending colon mass consistent with adenocarcinoma of the colon. 1. Adenocarcinoma of ascending colon. Partial narrowing of the colon. Patient admitted with partial obstructive symptoms. These have resolved on low residue diet. Currently no surgery anticipated. 2. Abnormal CT scan suspicious for liver metastases. Oncology following. I understand liver biopsy pending. 3. Abnormal CT scan suspicious for bladder lesion cystoscopy has been recommended. Plan as per Oncology service. Subjective Date/time seen: 11/20/19 10:08 Objective Data Vital Signs Vital Signs: Vital Signs - 24 hr 11/19/19 14:00 11/19/19 22:00 11/19/19 22:36 Temperature 36.7 C 37.2 C Pulse Rate 94 81 82 Respiratory Rate 18 20 18 Blood Pressure 108/59 L 107/59 L Pulse Oximetry 96 99 95 11/20/19 04:52 11/20/19 06:00 11/20/19 08:48 Temperature 36.7 C Pulse Rate 81 65 Respiratory Rate 19 20 Blood Pressure 104/58 L 107/62 Pulse Oximetry 96 98 Intake/Output Intake/Output: Intake & Output 11/17/19 11/18/19 11/19/19 11/20/19 23:59 23:59 23:59 23:59 Intake Total 1808 1690 3175 600 Output Total 500 5 Balance 1808 1690 6375 595 Meds/Results Medications: Active Medications Generic Name Dose Route Start Last Admin Trade Name Freq PRN Reason Stop Dose Admin Acetaminophen 650 mg 11/15/19 17:11/20/19 08:48 Tylenol Tablet PO 650 mg Q6H PRN Administration Mild Pain (1-3) or Fever Hydrocodone Bitart/Acetaminophen 1 tab 11/15/19 17:05 11/18/19 16:46 [place] 5-325 Mg PO 1 tab Q6H PRN Administration Pain Rated 4-10 Alprazolam 0.25 mg 11/16/19 08:45 Xanax PO TID PRN Anxiety Diltiazem HCl 360 mg 11/16/19 09:00 11/20/19 08:44 Cardizem Cd PO 12/16/19 09:01 360 mg DAILY LESLIE Administration Furosemide 40 mg 11/16/19 09:00 11/20/19 08:44 Lasix Tablet PO 40 mg QAM LESLIE Administration Iron Sucrose 500 mg/ Sodium 275 mls @ 78.571 mls/hr 11/19/19 09:00 11/20/19 08:43 Chloride IVPB 11/21/19 09:01 78.6 mls/hr QAM LESLIE Administration Lisinopril 20 mg 11/16/19 09:00 11/20/19 08:48 Prinivil PO 20 mg DAILY LESLEI Administration Ondansetron HCl 4 mg 11/15/19 11:28 Zofran Inj IV PUSH Q4H PRN Nausea Oxybutynin Chloride 5 mg 11/16/19 09:00 11/20/19 08:44 Ditropan PO 5 mg BID LESLIE Administration Potassium Chloride 10 meq 11/16/19 09:00 11/20/19 08:44 Kcl Tablet PO 10 meq DAILY LESLIE Administration Tamsulosin HCl 0.4 mg 11/16/19 09:00 11/20/19 08:45 Flomax PO 0.4 mg DAILY LESLIE Administration Venlafaxine HCl 75 mg 11/16/19 09:00 11/20/19 08:45 Effexor Xr PO 75 mg BID LESLIE Administration Radiology Results: ITS Impressions Abdomen/Pelvis CT 11/15/19 10:18 IMPRESSION: Suspected carcinoma the ascending colon with hepatic metastatic disease Mild small bowel dilatation and air-fluid levels, air-fluid levels of ascending colon, possibly secondary to partial obstruction due to the ascending colon mass Diverticulosis of the colon Nonspecific up to 1.3 cm left and 10 mm right indeterminate renal lesions Prostate enlargement and calcification Labs Labs: Laboratory Results - last 24 hr 11/20/19 11/20/19 11/20/19 04:43 04:43 04:43 WBC 8.9 RBC 3.59 L Hgb 8.0 L Hct 27.5 L MCV 76.6 L MCH 22.3 L MCHC 29.1 L RDW 17.0 H Plt Count 382 H MPV 8.7 PT 16.6 H INR 1.4 APTT 43.2 H Potassium 3.8 Prealbumin 5.3 L
--- NOTE | 2019-11-20 13:00 | PC.NURSE ---
To ultrasound for ultrasound guided liver biopsy - via stretcher - with transporter.
--- NOTE | 2019-11-20 15:59 | PC.NURSE ---
Patient returned from radiology. CT guided biopsy of liver completed. Dressing D/I to RUQ. No drainage noted. No c/o pain.
--- NOTE | 2019-11-20 16:12 | P.PNONC_ITS ---
Progress Note: A/P - Additional Plan Poorly differentiated adenocarcinoma of ascending colon status post colonoscopy and biopsy. Likely metastatic involvement of the liver. Patient had CT-guided biopsy of liver nodule done today and pathology is pending. Patient will have metabolic placed tomorrow in preparation for systemic chemotherapy. Iron deficiency anemia. Hemoglobin stable status post IV iron infusion. - Time Spent With Patient Total time spent is greater than 50% in coordination of care (as documented) at patient's floor/unit and/or counseling patient: 15 - 25 minutes Subjective Interval history: Metastatic colon cancer Iron deficiency anemia Review of Systems - Review of Systems Patient is leaving for CT-guided biopsy of the liver lesion. He denies any abdominal pain. Denies any chest pain and shortness of breath. - Neurologic Denies syncope, Denies headache(s), Denies loss of vision, Denies tingling, Denies tremor(s) Exam Vital signs: Klaus Manzo. Assessment of coma and impaired consciousness. A p ractical scale. Lancet 1974; 2:81-4. Narrative: Lungs are clear to auscultation bilaterally Cardiovascular regular rate rhythm no murmurs Abdomen soft nontender nondistended bowel sounds are positive Extremities no edema PN: Objective Data - Labs CBC & Chem 7: 11/20/19 04:43 11/20/19 04:43 Labs: Laboratory Results - last 24 hr 11/20/19 11/20/19 11/20/19 04:43 04:43 04:43 WBC 8.9 RBC 3.59 L Hgb 8.0 L Hct 27.5 L MCV 76.6 L MCH 22.3 L MCHC 29.1 L RDW 17.0 H Plt Count 382 H MPV 8.7 PT 16.6 H INR 1.4 APTT 43.2 H Potassium 3.8 Prealbumin 5.3 L
[2019-11-21] VITALS (20 sets, daily range): BP systolic 91–126; BP diastolic 50–73; PULSE 60–90; RESP 14–24; TEMP 36–38.1; O2SAT 92–100
[2019-11-21] MEDS: ACETAMINOPHEN 325 MG TABLET 650 MG PO (04:45)
[2019-11-21 05:34] LABS: Alanine Aminotransferase 18 U/L (4-50); Albumin Level 3.2 g/dL (3.5-5.1); Alkaline Phosphatase 71 U/L (38-126); Aspartate Amino Transferase 28 U/L (17-59); Bilirubin,Total 0.3 mg/dL (0.2-1.3); Blood Urea Nitrogen 10 mg/dL (9-20); Calcium 8.6 mg/dL (8.4-10.2); Carbon Dioxide 31 mmol/L (22-30); Chloride 101 mmol/L (98-107); Estimated CRCL calculation 88 ml/min; Estimated Glomerular Filt Rate > 60; Glucose 91 mg/dL (75-110); Magnesium 1.8 mg/dL (1.6-2.3); Potassium 3.9 mmol/L (3.4-5.0); Sodium 136 mmol/L (137-145)
[2019-11-21 05:35] LABS: Basophils Percent Auto 0.4 % (0.2-1.2); Eosinophils Absolute Auto 0.2 K/mm3 (0-0.3); Eosinophils Percent Auto 2.4 % (0-4.4); Hematocrit 27.5 % (42.0-52.0); Immature Granulocyte Absolute 0.06 K/mm3 (0.00-0.031); Immature Granulocyte Percent A 0.6 % (0-0.5); Lymphocytes Absolute Auto 1.35 K/mm3 (0.9-3.2); Lymphocytes Percent Auto 14.3 % (18.3-44.2); Mean Corpuscular HGB Conc 29.1 g/dl (32-36); Mean Corpuscular Hemoglobin 22.1 pg (26-34); Mean Platelet Volume 8.8 fl (7.4-10.4); Monocytes Percent Auto 10.1 % (2.6-8.5); Neutrophils Absolute Auto 6.8 K/mm3 (1.3-6.7); Neutrophils Percent Auto 72.2 % (45.5-73.1); Platelet Count Result 388 k/mm3 (150-375); Red Blood Count 3.62 M/mm3 (4.6-6.20); Red Cell Distribution Width 17.3 % (11.5-14.5); White Blood Count 9.4 K/mm3 (4.5-10.0)
[2019-11-21 06:17] LABS: Helmet Cells 1+ (NORMAL); Hypochromasia 2+ (NORMAL); Ovalocytes 1+ (NORMAL); Stomatocytes 1+ (NORMAL); Tear Drop Cells 2+ (NORMAL)
--- NOTE | 2019-11-21 08:03 | WPDGIPROGNO ---
Progress Note: A&P Additional Plan Patient feels good this morning. Denies abdominal pain. Had liver biopsy yesterday. Physical exam patient is alert. Comfortable at rest anicteric. Abdomen is obese soft and nontender. Impression 1. Colorectal cancer. 2. Abnormal CT scan suggestive liver metastases. Histology pending from recent biopsy. 3. Abnormal CT scan suggesting bladder lesion. Plan is for oncology follow-up. Hopefully discharge soon. Subjective Date/time seen: 11/21/19 08:03 Objective Data Vital Signs Vital Signs: Vital Signs - 24 hr 11/20/19 08:48 11/20/19 15:54 11/20/19 21:04 Temperature 36.1 C L Pulse Rate 74 104 H Respiratory Rate 20 23 H Blood Pressure 107/62 115/59 L Pulse Oximetry 95 92 11/20/19 21:05 11/20/19 23:41 11/21/19 00:00 Temperature 37.1 C Pulse Rate 78 81 Respiratory Rate 16 20 Blood Pressure 121/69 Pulse Oximetry 92 92 100 11/21/19 03:42 11/21/19 04:40 11/21/19 04:45 Temperature 38.1 C H 38.1 C H Pulse Rate 73 74 Respiratory Rate 14 20 Blood Pressure 108/62 Pulse Oximetry 97 97 11/21/19 06:22 Temperature 37.4 C Pulse Rate Respiratory Rate Blood Pressure Pulse Oximetry Intake/Output Intake/Output: Intake & Output 11/18/19 11/19/19 11/20/19 11/21/19 23:59 23:59 23:59 23:59 Intake Total 1690 3175 1415 600 Output Total 500 5 300 Balance 1690 2675 1410 300 Meds/Results Medications: Active Medications Generic Name Dose Route Start Last Admin Trade Name Freq PRN Reason Stop Dose Admin Acetaminophen 650 mg 11/15/19 17:05 11/21/19 04:45 Tylenol Tablet PO 650 mg Q6H PRN Administration Mild Pain (1-3) or Fever Hydrocodone Bitart/Acetaminophen 1 tab 11/15/19 17:05 11/20/19 22:17 [place] 5-325 Mg PO 1 tab Q6H PRN Administration Pain Rated 4-10 Alprazolam 0.25 mg 11/16/19 08:45 Xanax PO TID PRN Anxiety Diltiazem HCl 360 mg 11/16/19 09:00 11/20/19 08:44 Cardizem Cd PO 12/16/19 09:01 360 mg DAILY LESLIE Administration Furosemide 40 mg 11/16/19 09:00 11/20/19 08:44 Lasix Tablet PO 40 mg QAM LESLIE Administration Iron Sucrose 500 mg/ Sodium 275 mls @ 78.571 mls/hr 11/19/19 09:00 11/20/19 12:13 Chloride IVPB 11/21/19 09:01 Infused QAM LESLIE Infusion Piperacillin/Tazobactam/Dextrose 3.375 gm in 50 mls @ 100 mls/hr 11/20/19 18:00 11/21/19 07:00 Zosyn 3.375 Gm/D5w 50ml Pm IVPB Infused Q6HR LESLIE Infusion Lisinopril 20 mg 11/16/19 09:00 11/20/19 08:48 Prinivil PO 20 mg DAILY LESLIE Administration Ondansetron HCl 4 mg 11/15/19 11:28 Zofran Inj IV PUSH Q4H PRN Nausea Oxybutynin Chloride 5 mg 11/16/19 09:00 11/20/19 17:36 Ditropan PO 5 mg BID LESLIE Administration Potassium Chloride 10 meq 11/16/19 09:00 11/20/19 08:44 Kcl Tablet PO 10 meq DAILY LESLIE Administration Tamsulosin HCl 0.4 mg 11/16/19 09:00 11/20/19 08:45 Flomax PO 0.4 mg DAILY LESLIE Administration Venlafaxine HCl 75 mg 11/16/19 09:00 11/20/19 17:36 Effexor Xr PO 75 mg BID LESLIE Administration Radiology Results: ITS Impressions Abdomen/Pelvis CT 11/15/19 10:18 IMPRESSION: Suspected carcinoma the ascending colon with hepatic metastatic disease Mild small bowel dilatation and air-fluid levels, air-fluid levels of ascending colon, possibly secondary to partial obstruction due to the ascending colon mass Diverticulosis of the colon Nonspecific up to 1.3 cm left and 10 mm right indeterminate renal lesions Prostate enlargement and calcification Liver Biopsy CT 11/20/19 15:50 IMPRESSION: 1. Successful CT-guided biopsy of one of several hepatic lesions concerning for metastatic disease. Labs Labs: Laboratory Results - last 24 hr 11/21/19 11/21/19 05:14 05:14 WBC 9.4 RBC 3.62 L Hgb 8.0 L Hct 27.5 L MCV 76.0 L MCH 22.1 L MCHC 29.1 L RDW 17.3 H Plt Count 388 H MPV
[2019-11-21] MEDS: OXYBUTYNIN CHLORIDE 5 MG TABLET PO (08:06)
[2019-11-21] MEDS: POTASSIUM CHLORIDE 10 MEQ TABLET.ER PO (08:06)
[2019-11-21] MEDS: TAMSULOSIN HCL 0.4 MG CAPSULE PO (08:06)
[2019-11-21] MEDS: VENLAFAXINE HCL XR 75 MG CAP.ER.24H PO ×2 (08:06→17:15)
[2019-11-21] MEDS: IRON SUCROSE COMPLEX 500 MG in SODIUM CHLORIDE 0.9% IV 250 ML 78.6 MG IVPB (08:10)
--- NOTE | 2019-11-21 08:57 | WPDANESEPPF ---
Anes - Initial Pre Proc Eval Procedure: Operation Date: 11/18/19 08:30 Proposed Procedures p Colonoscopy - Selvin Montero MD Operation Date: 11/21/19 12:30 Proposed Procedures p Insertion Rashawn Cath - Fidel Lockwood MD Date/Time: 11/21/19 08:57 Surgeon: NELSON Beckham Pre Op Diagnosis: Abdominal pain and diarrhea Patient Data Age: 78 Gender: M Height: 1.78 m Weight: 133 kg Last Vital Signs Temp 37.4 C 11/21/19 06:22 Pulse 74 11/21/19 04:40 Resp 20 11/21/19 04:40 BP 108/62 11/21/19 04:40 Pulse Ox 97 11/21/19 04:40 Allergies Allergy/AdvReac Type Severity Reaction Status Date / Time mold Allergy Unknown Sneezing Verified 11/18/19 07:12 Home Medications Medication Instructions Recorded Confirmed Type diltiazem HCl 360 mg 360 mg PO DAILY #90 cap 11/04/19 11/15/19 Rx capsule,extended release 24 hr furosemide 40 mg tablet 40 mg PO QAM #90 tablet 11/04/19 11/15/19 Rx potassium chloride 10 mEq 10 meq PO DAILY #90 cap 11/04/19 11/15/19 Rx capsule,extended release venlafaxine 75 mg tablet,extended 75 mg PO BID #180 tablet 11/04/19 11/15/19 Rx release 24 hr lisinopril 20 mg tablet 20 mg PO DAILY #90 tablet 11/12/19 11/15/19 Rx oxybutynin chloride 5 mg tablet 5 mg PO BID #180 tablet 11/12/19 11/15/19 Rx hyoscyamine sulfate 0.125 mg tablet 0.125 mg PO BID PRN #30 tablet 11/14/19 11/15/19 Rx tamsulosin 0.4 mg capsule 0.4 mg PO DAILY #90 cap 11/14/19 11/15/19 Rx simvastatin 20 mg PO QPM 11/15/19 11/15/19 History vitamin E 400 unit PO DAILY 11/15/19 11/15/19 History Laboratory Tests 11/21/19 11/21/19 05:14 05:14 WBC 9.4 K/mm3 K/mm3 (4.5-10.0) RBC 3.62 M/mm3 L M/mm3 (4.6-6.20) Hgb 8.0 g/dL L g/dL (14.0-18.0) Hct 27.5 % L % (42.0-52.0) MCV 76.0 fl L fl (80-100) MCH 22.1 pg L pg (26-34) MCHC 29.1 g/dl L g/dl (32-36) RDW 17.3 % H % (11.5-14.5) Plt Count 388 k/mm3 H k/mm3 (150-375) MPV 8.8 fl fl (7.4-10.4) Immature Gran % (Auto) 0.6 % H % (0-0.5) Neut % (Auto) 72.2 % % (45.5-73.1) Lymph % (Auto) 14.3 % L % (18.3-44.2) Smyth % (Auto) 10.1 % H % (2.6-8.5) Eos % (Auto) 2.4 % % (0-4.4) Baso % (Auto) 0.4 % % (0.2-1.2) Lymph # (Auto) 1.35 K/mm3 K/mm3 (0.9-3.2) Smyth # (Auto) 1.0 K/mm3 H K/mm3 (0.1-0.6) Eos # (Auto) 0.2 K/mm3 K/mm3 (0-0.3) Baso # (Auto) 0.0 K/mm3 K/mm3 (0.0-0.1) Abs Immat Gran (auto) 0.06 K/mm3 H K/mm3 (0.00-0.031) Absolute Neuts (auto) 6.8 K/mm3 H K/mm3 (1.3-6.7) Absolute Nucleated RBC 0.0 K/mm3 K/mm3 (0.0-0.012) Nucleated RBC % 0.0 % % (0.0-0.2) Platelet Estimate Slightly increased (Adequate) Hypochromasia 2+ (NORMAL) Tear Drop Cells 2+ (NORMAL) Ovalocytes 1+ (NORMAL) Stomatocytes 1+ (NORMAL) Helmet Cells 1+ (NORMAL) Sodium 136 mmol/L L mmol/L (137-145) Potassium 3.9 mmol/L mmol/L (3.4-5.0) Chloride 101 mmol/L mmol/L (98-107) Carbon Dioxide 31 mmol/L H mmol/L (22-30) BUN 10 mg/dL mg/dL (9-20) Creatinine 0.80 mg/dL mg/dL (0.7-1.3) Estim Creat Clear Calc 88 ml/min ml/min Estimated GFR > 60 (59 - ) Glucose 91 mg/dL mg/dL (75-110) Calcium 8.6 mg/dL mg/dL (8.4-10.2) Magnesium 1.8 mg/dL mg/dL (1.6-2.3) Total Bilirubin 0.3 mg/dL mg/dL (0.2-1.3) AST 28 U/L U/L (17-59) ALT 18 U/L U/L (4-50) Alkaline Phosphatase 71 U/L U/L (38-126) Total Protein 7.0 g/dL g/dL (6.3-8.2) Albumin 3.2 g/dL L g/dL (3.5-5.1) Patient hx anesthesia problems: none Family hx anesthesia problems: none PMFSH Past Medical History Medical History (Updated 11/21/19 @ 09:00 by Roman Jon MD) Atrial fibrillation (Unknown) No longer on systemic anticoagulation for reas
--- NOTE | 2019-11-21 09:45 | PM.IMPN ---
Progress Note: A&P Assessment and Plan (1) Colon adenocarcinoma: Code(s): C18.9 - Malignant neoplasm of colon, unspecified Status: Acute Assessment and Plan: Colon mass noted on CT and on colonoscopy 11/[address] Montero. This mass seemed to have been causing a partial bowel obstruction. Pathology demonstrates colorectal adenocarcinoma. CT also demonstrates what may be metastasis to the liver, liver biopsy done 11/19. GI, general surgery, and oncology following - appreciate further recommendations. Plan is for Port A Cath insertion by Dr Lockwood this afternoon. Anticipate possible discharge tomorrow. He will need to follow up with Dr Leslie for systemic chemotherapy and urology for outpatient cystoscopy regarding abnormal CT findings of the bladder and hematuria. (2) Partial bowel obstruction: Qualifiers: Intestinal obstruction type: other intestinal obstruction Qualified Code(s): K56.690 - Other partial intestinal obstruction Code(s): K56.600 - Partial intestinal obstruction, unspecified as to cause Status: Resolved Assessment and Plan: No abdominal pain, nausea, or vomiting today. (3) Microcytic anemia: Onset Date: Unknown Code(s): D50.9 - Iron deficiency anemia, unspecified Status: Acute Assessment and Plan: H&H low but stable. Recieved 1 unit packed RBC 11/16. Dr Leslie started IV iron. Will plan to discharge with iron supplementation and follow up labs outpatient. (4) Atrial fibrillation: Onset Date: Unknown Qualifiers: Atrial fibrillation type: unspecified Qualified Code(s): I48.91 - Unspecified atrial fibrillation Code(s): I48.91 - Unspecified atrial fibrillation Status: Acute Assessment and Plan: Chronic, rate controlled on oral diltiazem. Not on any anticoagulation, no plan to start any at this time based on his new diagnosis and anemia. (5) Hypertension: Onset Date: Unknown Qualifiers: Hypertension type: essential hypertension Qualified Code(s): I10 - Essential (primary) hypertension Code(s): I10 - Essential (primary) hypertension Status: Acute Assessment and Plan: Last BP 108/62. Maintained on lisinopril, Cardizem and Lasix. Monitor BP. (6) Obstructive sleep apnea on CPAP: Onset Date: Unknown Code(s): G47.33 - Obstructive sleep apnea (adult) (pediatric); Z99.89 - Dependence on other enabling machines and devices Status: Acute Assessment and Plan: CPAP. (7) Benign prostatic hyperplasia: Qualifiers: Lower urinary tract symptom presence: symptoms absent Qualified Code(s): N40.0 - Benign prostatic hyperplasia without lower urinary tract symptoms Code(s): N40.0 - Benign prostatic hyperplasia without lower urinary tract symptoms Status: Acute Assessment and Plan: Continue tamsulosin. CT showed enlargement and calcification. No issues today per patient. (8) Hematuria: Qualifiers: Hematuria type: unspecified type Qualified Code(s): R31.9 - Hematuria, unspecified Code(s): R31.9 - Hematuria, unspecified Status: Acute Assessment and Plan: Noted on UA with CT abnormalities. Asymptomatic and urine culture is negative. The CT shows: There is a prominent soft tissue mass at the base of the urinary bladder which may represent prostatomegaly, prostate cancer or less likely urinary bladder cancer. There is diffuse moderate thickening of the urinary bladder wall likely related to bladder outlet obstruction associated with prostate enlargement. Previous provider discussed with urology; Urology plans to do outpatient cystoscopy. (9) Anxiety: Onset Date: ~
[2019-11-21] MEDS: LACTATED RINGERS 1,000 ML 30 ML IV CONT (11:30)
--- NOTE | 2019-11-21 11:42 | PC.NURSE ---
Patient to OR per bed.
--- NOTE | 2019-11-21 12:13 | WPDHPUPDATE1 ---
History and Physical Update Update Date/Time: 11/21/19 12:13 History and Physical has been reviewed, including an updated exam of the patient. There are changes in the patient's condition. Since his admission H and P the patient has had a colonoscopy that shows changes definitely consistent with possible colon cancer in the right colon. He also yesterday had a core biopsy of 1 of his liver lesions. The suspected partial small bowel obstruction has resolved and the patient is gradually improving. Oncology has seen the patient and are planning palliative chemotherapy to try to shrink the tumors in the liver and colon. Risks, benefits, and alternatives of placement of a Port-A-Cath have been discussed and questions answered. Patient agrees to proceed with procedure. VONNIE
[2019-11-21] MEDS: HEPARIN SODIUM 5,000 UNITS/ML VIAL 5000 UNITS IRRIGATION (13:12)
--- NOTE | 2019-11-21 15:27 | PM.PROC ---
Procedure Note - Detailed Date of procedure: 11/21/19 Pre-op diagnosis: Abdominal pain and diarrhea Post-op diagnosis: same Procedure performed: Placement of Port-A-Cath Description of procedure: Patient was seen and marked in the pre-op area prior to coming to the OR. Patient was brought to the operating room. He was placed supine on the operating table and general IV sedation was induced. The nurse brass cleaner provided oxygen and IV sedation. however this patient has sleep apnea and is morbidly obese. Most likely because of this he had trouble breathing and therefore ill may was initially placed. Subsequently he also did not breathe well with that so this was removed and the patient had oral endotracheal intubation prior to starting the procedure. He subsequently tolerated this well. Patient's head was carefully turned to the left side while in the supine position and the patient's entire neck and anterior chest on both sides was prepped and draped in the usual sterile fashion. Following this the appropriate time-out was completed confirming procedure and patient. We confirmed that all the needed equipment was present in the room. Following this the ultrasound probe was draped into the field and using the probe we carefully identified the carotid artery and jugular vein on the right neck. I marked the skin directly over the Rt. internal jugular vein. Following this, using the continuous ultrasound guidance, a Cook needle was placed through the skin into this vein. I then was able to draw back good dark blood. Once this was completed a guidewire using a J-tip was advanced through the needle and then the needle and the guidewire cover were withdrawn. C-arm fluoroscopy was used to confirm that the guidewire was nicely in the venous system. Once this was confirmed with the C - arm I preceded on by making the pocket for the port on the patient's anterior right chest approximately 3 centimeters below the clavicle overlying the chest wall. Local anesthetic was infiltrated into the skin where there was a transverse incision marked out. Incision was made and we made a pocket inferior to the incision with just a little dissection superior. The Smart port was tried in the pocket and seemed to fit well. Following this the catheter which had been placed on a tunneling device was tunneled from the port site on the anterior right chest up to the right neck where a small incision had been made along the guidewire with an #11 blade knife. Then the catheter was pulled through so that we would have 15 centimeters to put into the central venous system once the dilation took place. Following this we placed the dilator and sheath over the guidewire in the jugular vein and carefully dilated the tract into the central venous system. The guidewire and dilator were then removed, carefully covering the end of the sheath to prevent air embolus. The end of the catheter which had been cut off straight across and the tip checked was then inserted into the sheath and into the neck. I then carefully pulled the 2 arms of the tear-away sheath away as the clerical dentist assistant held the catheter in position with a DeBakey forceps. Following this we checked the position of the catheter with C-arm fluoroscopy confirming that the tip seemed to be in the distal superior vena cava near the junction with the right atrium. I felt that it was in good position and so the rest of the catheter was pulled down toward the feet into the port site. We then measured to the appropriate position to cut the catheter to attach it to the port stem. Then the connector sealing device for the catheter port was placed onto the catheter and then the catheter cut to the appropriate length and inserted onto the stem of the port. Then the connector was advanced onto the stem over the catheter sealing it to the port. A single 3- 0 Prolene suture was also used during this to suture the port and to the underlying musculature. Albert
--- NOTE | 2019-11-21 15:40 | PC.NURSE ---
Return from OR per bed.
[2019-11-21] MEDS: FUROSEMIDE 40 MG TABLET PO (15:41)
[2019-11-21] MEDS: lisinopriL 20 MG TABLET PO (15:41)
--- NOTE | 2019-11-21 16:39 | SUR.OPER ---
ebl 12ml
[2019-11-21] MEDS: LORAZEPAM INJ 2 MG/ML VIAL 0.5 MG IV PUSH (20:40)
--- NOTE | 2019-11-22 | ECHO_ITS ---
Patient Info Name: Chaim Wade Age: 78 years : 1940 Gender: Male Ht: 70 in Wt: 293 lbs BSA: 2.62 m2 HR: 65 bpm BP: 140 / 87 mmHg Heart Rhythm: Atrial Fibrillation Technical Quality: Fair Exam Date: 11/22/2019 9:27 AM Exam Location: [facility] Pulmonary Patient Status: Inpatient Admit Date: 11/17/2019 Staff Ordering Physician: Ashley Peres PA-C Dairy [employer] Mixing Operator: Alvarado Luo RDCS Attending Provider: Ashley Peres PA-C Exam Type: CA echo doppler color flow Study Info Indications I51.7 - Cardiomegaly Complete two-dimensional, color flow and Doppler transthoracic echocardiogram is performed. History/Risk Factors Cardiomegaly; Afib, HTN. Summary 1. Left ventricular chamber dimension is normal. 2. Left ventricular systolic function is normal, estimated at 60-65%. 3. The left ventricular diastolic function is abnormal. 4. E/e' 10 is mildly elevated. 5. Patient is in atrial fibrillation. 6. Left atrial chamber dimension is moderately enlarged. 7. Right atrial chamber dimension is moderately enlarged. 8. There is mild aortic valve sclerosis. 9. There is moderate tricuspid valve regurgitation. 10. No pulmonary hypertension, estimated pulmonary arterial systolic pressure is 39 mmHg. 11. Normal inferior vena cava with <50% collapse upon inspiration consistent with elevated right atrial pressure, 10 mmHg. Left Ventricle E/e' 10 is mildly elevated. Patient is in atrial fibrillation. Left ventricular chamber dimension is normal. Left ventricular systolic function is normal, estimated at 60-65%. The left ventricular diastolic function is abnormal. Right Ventricle Right ventricular chamber dimension is normal. Right ventricular systolic function is normal. Left Atria Left atrial chamber dimension is moderately enlarged. Right Atria Right atrial chamber dimension is moderately enlarged. Aortic Valve The aortic valve is trileaflet. There is mild aortic valve sclerosis. There is no aortic valve stenosis. There is no aortic valve regurgitation. Pulmonic Valve There is no pulmonic regurgitation. Mitral Valve There is no mitral valve stenosis. There is no mitral valve regurgitation. Tricuspid Valve There is moderate tricuspid valve regurgitation. No pulmonary hypertension, estimated pulmonary arterial systolic pressure is 39 mmHg. Pericardium/Pleural There is no pericardial effusion. Inferior Vena Cava Normal inferior vena cava with <50% collapse upon inspiration consistent with elevated right atrial pressure, 10 mmHg. Aorta The aortic root size at the sinus of Valsalva is normal. Left Ventricular Outflow Tract Name Value Normal LVOT 2D LVOT Diameter 2.0 cm LVOT Doppler LVOT Peak Gradient 6 mmHg LVOT Mean Gradient 3 mmHg LVOT VTI 22 cm LVOT VTI/AV VTI Ratio 0.8 LVOT Stroke Volume 72 ml LVOT CO 6.9 l/min LVOT CI 2.6 l/min/m2
[2019-11-22 01:47] VITALS: PULSE 75; RESP 20; O2SAT 96
[2019-11-22 04:55] LABS: Basophils Percent Auto 0.1 % (0.2-1.2); Hematocrit 27.2 % (42.0-52.0); Immature Granulocyte Absolute 0.16 K/mm3 (0.00-0.031); Immature Granulocyte Percent A 1.4 % (0-0.5); Lymphocytes Absolute Auto 0.73 K/mm3 (0.9-3.2); Lymphocytes Percent Auto 6.4 % (18.3-44.2); Mean Corpuscular HGB Conc 29.4 g/dl (32-36); Mean Corpuscular Hemoglobin 22.5 pg (26-34); Mean Corpuscular Volume 76.4 fl (80-100); Monocytes Absolute Auto 0.5 K/mm3 (0.1-0.6); Monocytes Percent Auto 4.4 % (2.6-8.5); Neutrophils Percent Auto 87.7 % (45.5-73.1); Platelet Count Result 422 k/mm3 (150-375); Red Blood Count 3.56 M/mm3 (4.6-6.20); Red Cell Distribution Width 17.7 % (11.5-14.5); White Blood Count 11.4 K/mm3 (4.5-10.0)
[2019-11-22 05:19] LABS: Alanine Aminotransferase 16 U/L (4-50); Albumin Level 3.3 g/dL (3.5-5.1); Alkaline Phosphatase 66 U/L (38-126); Aspartate Amino Transferase 23 U/L (17-59); Bilirubin,Total 0.2 mg/dL (0.2-1.3); Blood Urea Nitrogen 12 mg/dL (9-20); Calcium 8.7 mg/dL (8.4-10.2); Carbon Dioxide 29 mmol/L (22-30); Chloride 101 mmol/L (98-107); Estimated CRCL calculation 99 ml/min; Estimated Glomerular Filt Rate > 60; Glucose 120 mg/dL (75-110); Magnesium 1.9 mg/dL (1.6-2.3); Phosphorus 2.9 mg/dL (2.5-4.5); Potassium 4.2 mmol/L (3.4-5.0); Sodium 133 mmol/L (137-145)
[2019-11-22 05:44] VITALS: BP 140/87; PULSE 85; RESP 20; TEMP 36.6; O2SAT 96
[2019-11-22 06:27] LABS: Anisocytosis 2+ (NORMAL); Platelet Estimate Adequate (Adequate)
[2019-11-22 06:28] LABS: Hypochromasia 1+ (NORMAL); Ovalocytes 1+ (NORMAL)
[2019-11-22] MEDS: lisinopriL 20 MG TABLET PO (08:00)
[2019-11-22] MEDS: VENLAFAXINE HCL XR 75 MG CAP.ER.24H PO (08:00)
[2019-11-22] MEDS: POTASSIUM CHLORIDE 10 MEQ TABLET.ER PO (08:00)
[2019-11-22] MEDS: TAMSULOSIN HCL 0.4 MG CAPSULE PO (08:00)
[2019-11-22] MEDS: FUROSEMIDE 40 MG TABLET PO (08:00)
[2019-11-22 08:07] VITALS: O2SAT 92
--- NOTE | 2019-11-22 09:53 | PM.PNGS ---
Progress Note: A&P Assessment and Plan (1) Partial bowel obstruction: Qualifiers: Intestinal obstruction type: other intestinal obstruction Qualified Code(s): K56.690 - Other partial intestinal obstruction Code(s): K56.600 - Partial intestinal obstruction, unspecified as to cause Status: Resolved Assessment and Plan: This seems to have resolved. Bowels are functioning and he is tolerating a diet without any complaints. Patient advanced to a low fiber diet and dietitian consulted for education. (2) Colonic mass: Onset Date: Unknown Code(s): K63.89 - Other specified diseases of intestine Status: Acute Assessment and Plan: Seen with bowel wall thickening in the area of the right colon just below the hepatic flexure. This was seen on CT scan last Monday. Colonoscopy on 11/18/19 shows a nearly circumferential lesion consistent with possible adenocarcinoma in the proximal ascending colon. (See report). Biopsies show an apparent poorly differentiated adenocarcinoma and Dr. Lewis is sending some of this biopsy tissue out for the predictive panel since I let him know that we are not planning any further surgery for this patient. CEA was normal. Dr. Lockwood has also spoken with Dr. Leslie, regarding the plan. The colon is an obvious potential primary site for the liver metastasis, although he had a normal CEA, so there is a concern there may be another primary source for the liver lesions. Therefore, a CT -guided liver biopsy was done in Radiology on 11/20/[address] Ortiz. Pathology on that is still pending today. He does have BPH and an abnormality of the bladder and it appears Urology is planning for cystoscopy as an outpatient. Port-A-Cath placement completed for the patient on . The patient has agreed to neoadjunctive chemotherapy and Oncology had requested the port placement. I also questioned Dr. Leslie and he feels that if we get started on neoadjuvant chemotherapy that most likely the patient will not need surgical intervention for obstruction of the right colon malignancy. He feels this should shrink it enough to maintain patency. (3) Microcytic anemia: Onset Date: Unknown Code(s): D50.9 - Iron deficiency anemia, unspecified Status: Acute Assessment and Plan: Hgb remains stable, 8.0 today. Oncology has initiated iron infusions. (4) Obstructive sleep apnea on CPAP: Onset Date: Unknown Code(s): G47.33 - Obstructive sleep apnea (adult) (pediatric); Z99.89 - Dependence on other enabling machines and devices Status: Acute Assessment and Plan: Pt consitently using his CPAP. (5) Morbid obesity: Onset Date: Unknown Code(s): E66.01 - Morbid (severe) obesity due to excess calories Status: Acute Assessment and Plan: Patient has limited his diet some because of the malignancy. We do not really know if he has lost some weight. His pre-albumin tested today was only 5.3 so he does need some nutritional support in order to build his immunity. Also will need to be on a low fiber diet in order to try to prevent obstruction at the area of the right colon. (6) GERD (gastroesophageal reflux disease): Onset Date: Unknown Code(s): K21.9 - Gastro-esophageal reflux disease without esophagitis Status: Acute (7) Hypertension: Onset Date: Unknown Qualifiers: Hypertension type: essential hypertension Qualified Code(s): I10 - Essential (primary) hypertension Code(s): I10 - Essential (primary) hypertension Status: Acute Assessment and Plan: As per medications by the hospitalist (8) Atrial fibrillation: Onset Date: Unknown Qualifiers: Atrial fibrillation type: unspecified Qualified Code(s): I48.91 - Unspecified atrial fibrillation Code(s): I48.91 - Unspecified atrial fibrillation Status: Acute Assessment and Plan: [place]
--- NOTE | 2019-11-22 10:01 | WPDGIPROGNO ---
Progress Note: A&P Additional Plan Patient alert and comfortable this morning. Had PICC line placed yesterday. He states his in the [facility] last evening. Visitation limited by nationwide COVID pandemic. Physical exam reveals abdomen to be obese. Bowel sounds are present, soft and nontender. Impression 1. Colon cancer of the ascending colon. Apparent liver metastases by CT scan. Histology pending. Plan for chemotherapy and radiation per Oncology. Patient is decided to avoid surgery if at all possible. Subjective Date/time seen: 11/22/19 10:01 Objective Data Vital Signs Vital Signs: Vital Signs - 24 hr 11/21/19 10:02 11/21/19 12:00 11/21/19 13:58 Temperature 36.3 C L 36.3 C L Pulse Rate 85 70 60 Respiratory Rate 19 18 24 H Blood Pressure 126/73 94/55 L Pulse Oximetry 92 98 92 11/21/19 14:10 11/21/19 14:23 11/21/19 14:25 Temperature Pulse Rate 67 73 68 Respiratory Rate 24 H 24 H 20 Blood Pressure 91/57 L 102/64 Pulse Oximetry 93 95 95 11/21/19 14:40 11/21/19 14:55 11/21/19 15:10 Temperature Pulse Rate 66 68 65 Respiratory Rate 22 H 20 20 Blood Pressure 96/71 L 111/69 105/68 Pulse Oximetry 96 96 98 11/21/19 15:25 11/21/19 15:40 11/21/19 15:55 Temperature 36.2 C L 36.2 C L Pulse Rate 69 64 66 Respiratory Rate 18 18 18 Blood Pressure 111/65 122/68 113/66 Pulse Oximetry 99 97 97 11/21/19 17:25 11/21/19 22:00 11/21/19 22:27 Temperature 36.0 C L 36.3 C L Pulse Rate 82 90 77 Respiratory Rate 18 22 H 22 H Blood Pressure 109/50 L 124/71 Pulse Oximetry 98 96 96 11/22/19 01:47 11/22/19 05:44 11/22/19 08:07 Temperature 36.6 C Pulse Rate 75 85 Respiratory Rate 20 20 Blood Pressure 140/87 Pulse Oximetry 96 96 92 Intake/Output Intake/Output: Intake & Output 11/19/19 11/20/19 11/21/19 11/22/19 23:59 23:59 23:59 23:59 Intake Total 3175 1415 1685 980 Output Total 500 5 300 550 Balance 2675 1410 1385 430 Meds/Results Medications: Active Medications Generic Name Dose Route Start Last Admin Trade Name Freq PRN Reason Stop Dose Admin Acetaminophen 650 mg 11/15/19 17:05 11/21/19 04:45 Tylenol Tablet PO 650 mg Q6H PRN Administration Mild Pain (1-3) or Fever Hydrocodone Bitart/Acetaminophen 1 tab 11/15/19 17:05 11/20/19 22:17 [place] 5-325 Mg PO 1 tab Q6H PRN Administration Pain Rated 4-10 Alprazolam 0.25 mg 11/16/19 08:45 Xanax PO TID PRN Anxiety Diltiazem HCl 360 mg 11/16/19 09:00 11/22/19 08:00 Cardizem Cd PO 12/16/19 09:01 360 mg DAILY LESLIE Administration Fentanyl Citrate 25 mcg 11/21/19 08:55 Sublimaze IV PUSH Q2M PRN Pain Furosemide 40 mg 11/16/19 09:00 11/22/19 08:00 Lasix Tablet PO 40 mg QAM LESLIE Administration Hydromorphone HCl 0.25 mg 11/21/19 08:55 Dilaudid Inj IV PUSH Q5M PRN Pain Lisinopril 20 mg 11/16/19 09:00 11/22/19 08:00 Prinivil PO 20 mg DAILY LESLIE Administration Ondansetron HCl 4 mg 11/21/19 08:55 Zofran Inj IV PUSH ONCE PRN Nausea Potassium Chloride 10 meq 11/16/19 09:00 11/22/19 08:00 Kcl Tablet PO 10 meq DAILY LESLIE Administration Tamsulosin HCl 0.4 mg 11/16/19 09:00 11/22/19 08:00 Flomax PO 0.4 mg DAILY LESLIE Administration Venlafaxine HCl 75 mg 11/16/19 09:00 11/22/19 08:00 Effexor Xr PO 75 mg BID LESLIE Administration Radiology Results: ITS Impressions Abdomen/Pelvis CT 11/15/19 10:18 IMPRESSION: Suspected carcinoma the ascending colon with hepatic metastatic disease Mild small bowel dilatation and air-fluid levels, air-fluid levels of ascending colon, possibly secondary to partial obstruction due to the ascending colon mass Diverticulosis of the colon Nonspecific up to 1.3 cm left and 10 mm right indeterminate renal lesions Prostate enlargement and calcification Liver Biopsy CT 11/20/19 15:50 IMPRESSION: 1. Successful
--- NOTE | 2019-11-22 11:21 | PM.DS ---
DS: Diagnosis Admitting Diagnosis Admitting Diagnosis: Abnormal findings on diagnostic imaging of other specified body structures Discharge Diagnosis (1) Colon adenocarcinoma: Code(s): C18.9 - Malignant neoplasm of colon, unspecified Status: Acute Assessment and Plan: Date of Service 11/22/19 Mr. Wade is a pleasant 78yo M With history of atrial fibrillation, obstructive sleep apnea, hypertension, and BPH who presented to the ED from [facility] for evaluation of diarrhea and abdominal pain that began [address] abdomen/pelvis was obtained on arrival which showed prominent thickening of the colonic wall involving the ascending colon, suspicious for carcinoma in addition to multiple solid mass lesions of the liver concerning for metastasis. Additionally there was a prominent soft tissue mass at the base of the urinary bladder. The colonic wall thickening seemed to be contributing to a partial small-bowel obstruction. GI, General surgery, Oncology, and Urology were consulted. He underwent colonoscopy 11/18/[address] Monteor which visualized the area of suspicion in the ascending colon, and biopsies were obtained. Pathology was consistent with adenocarcinoma of the colon. He also underwent biopsy of 1 of the liver lesions On 11/20/19. He underwent Port-A-Cath insertion by Dr. Lockwood 11/21/2019. He did require general anesthesia for his Port-A-Cath insertion and he required supplemental oxygen after the procedure overnight, but was tolerating room air on day of discharge. He was maintained on a bowel regimen and his abdominal pain and diarrhea had subsided during this admission. He was tolerating a low-fiber diet prior to discharge. He has plans to follow-up with Dr. Leslie for systemic chemotherapy which could hopefully shrink the malignancy in size enough to Reduce his risk for subsequent bowel obstructions. He was also encouraged to follow-up with urology for an outpatient cystoscopy to further evaluate the soft tissue mass in the bladder. Unfortunately, Mr. Wade's the day prior to discharge from the hospital. He was hemodynamically stable for discharge on 11/22/2019, however overall prognosis is guarded. Consultations: General surgery- Dr. Fidel Lockwood GI-Dr. Selvin Montero Oncology-Dr. Winston Leslie Urology-Dr. Gamez Colon mass noted on CT and on colonoscopy 11/[address] Montero. This mass seemed to have been causing a partial bowel obstruction. Pathology demonstrates colorectal adenocarcinoma. CT also demonstrates what may be metastasis to the liver, liver biopsy done 11/19. GI, general surgery, and oncology following - appreciate further recommendations. Port-A-Cath insertion by Dr. Lockwood 11/20. He will need to follow up with Dr Leslie for systemic chemotherapy and urology for outpatient cystoscopy regarding abnormal CT findings of the bladder and hematuria. (2) Partial bowel obstruction: Qualifiers: Intestinal obstruction type: other intestinal obstruction Qualified Code(s): K56.690 - Other partial intestinal obstruction Code(s): K56.600 - Partial intestinal obstruction, unspecified as to cause Status: Resolved Assessment and Plan: No abdominal pain, nausea, or vomiting today. Tolerating a low-fiber diet. (3) Microcytic anemia: Onset Date: Unknown Code(s): D50.9 - Iron deficiency anemia, unspecified Status: Acute Assessment and Plan: H&H low but stable. Recieved 1 unit packed RBC 11/16. He received IV iron here per Dr. Leslie's recommendation, discharged with oral iron supplementation. (4) Atrial fibrillation: Onset Date: Unknown Qualifiers: Atrial fibrillation type: unspecified Qualified Code(s): I48.91 - Unspecified atrial fibrillation
== END 2019-11-22 12:15 | DRG 982 ==
LOC: ANHED 11:43 → ANH2MED 13:00
PROVIDERS: Internal Medicine Gastroenterology; Physician Assistant; Surgery; Admitting Provider Internal Medicine; Emergency Provider Emergency Medicine; PCP Family Medicine; Visit Provider Hospitalist
PROC: 0DJD8ZZ Inspection of Lower Intestinal Tract, Via Natural or Artificial Opening Endoscopic (ICD-10-PCS; CPT 45378; principal; 2019-11-18 08:30)
PROC: 0JH60WZ Insertion of Totally Implantable Vascular Access Device into Chest Subcutaneous Tissue and Fascia, Open Approach (ICD-10-PCS; principal; 2019-11-21 12:30)
DX: C18.2 Malignant neoplasm of ascending colon (principal); K56.690 Other partial intestinal obstruction; I48.20 Chronic atrial fibrillation, unspecified; Z68.41 Body mass index [BMI] 40.0-44.9, adult; K57.30 Diverticulosis of large intestine without perforation or abscess without bleeding; K76.9 Liver disease, unspecified; K64.8 Other hemorrhoids; D50.9 Iron deficiency anemia, unspecified; G47.33 Obstructive sleep apnea (adult) (pediatric); N40.0 Benign prostatic hyperplasia without lower urinary tract symptoms; I10 Essential (primary) hypertension; R31.9 Hematuria, unspecified; F41.9 Anxiety disorder, unspecified; K21.9 Gastro-esophageal reflux disease without esophagitis; E66.01 Morbid (severe) obesity due to excess calories; E78.5 Hyperlipidemia, unspecified; Z96.652 Presence of left artificial knee joint
CPT/HCPCS: 36415; 36430; 47000; 51701; 74177; 76705; 77001; 80048; 80053; 81001; 82378; 82728; 83540; 83550; 83605; 83690; 83735; 84100; 84132; 84134; 85014; 85018; 85025; 85027; 85610; 85730; 86850; 86900; 86901; 86923; 87040; 87086; 88104; 88108; 88305; 88307; 88342; 93306; 96361; 96365; 99285; A9270; C1788; G0378; J0131; J0330; J1100; J1644; J1756; J2060; J2370; J2405; J2543; J2704; J3010; J7030; J7050; J7120; P9016; Q9967

== ENCOUNTER 2019-12-04 11:22 | Outpatient (CLI) | payer MEDICARE, SELFPAY ==
[2019-12-04 11:41] LABS: Hematocrit 34.7 % (42.0-52.0); Hemoglobin 10.1 g/dL (14.0-18.0); Mean Corpuscular HGB Conc 29.1 g/dl (32-36); Mean Corpuscular Hemoglobin 23.7 pg (26-34); Mean Corpuscular Volume 81.3 fl (80-100); Mean Platelet Volume 9.2 fl (7.4-10.4); Platelet Count Result 439 k/mm3 (150-375); Red Blood Count 4.27 M/mm3 (4.6-6.20); Red Cell Distribution Width 23.6 % (11.5-14.5); White Blood Count 12.2 K/mm3 (4.5-10.0)
[2019-12-04 17:20] LABS: Iron 40 ug/dL (49-181)
[2019-12-04 17:37] LABS: Percent Iron Saturation 19 % (20-50)
== END 2019-12-04 11:23 | disposition home or self-care (01) ==
LOC: ANHLAB 11:25
PROVIDERS: PCP Family Medicine; Visit Provider Internal Medicine Hematology & Oncology
DX: D64.9 Anemia, unspecified (principal)
CPT/HCPCS: 36415; 82728; 83540; 83550; 85027

== ENCOUNTER 2019-12-10 07:32 | Outpatient (CLI) | payer MEDICARE, SELFPAY ==
--- NOTE | ~2019-12-10 | PE_ITS ---
EXAMINATION: PET skull to mid thigh DATE: 12/10/2019 10:56 INDICATION: Malignant neoplasm of colon. TECHNIQUE: Blood glucose level was 87 mg/dL. 10.543 mCi of 18-fluorodeoxyglucose (18-FDG) was adminis tered i.v. Low dose computed tomography (CT) images were acquired from the base of the brain to the p roximal thighs for attenuation correction and anatomic localization. Automated exposure control was e mployed. Dose-length product (DLP) was 1262 mGy-cm. Positron emission tomography (PET) images were ac quired in the same distribution. COMPARISON: CT abdomen and pelvis 11/15/2019 FINDINGS: Head/neck: There is increased activity in the glottis without CT correlate, likely physiologic. There are no pathologically enlarged lymph nodes. There is severe cervical spondylosis. Chest: There is mild atelectasis in the lungs. No pleural effusion. Cardiomegaly is noted. There are coronary artery calcifications. No pericardial effusion. There is a right internal jugular port with tip in right atrium. There is severe thoracic spondylosis. There is increased activity in many of the thoracic vertebra without CT correlate, likely bone marrow stimulation. Abdomen/pelvis/proximal thighs: There are at least 6 masses in the liver with the largest measuring 3 .0 x 2.6 cm with maximum SUV of 21.7. The gallbladder, spleen, pancreas, adrenal glands, and kidneys are normal. There are no dilated loops of bowel. There is diverticulosis of the colon without evidenc e of diverticulitis. There is 8.0 cm mass in the ascending colon with maximum SUV of 40.9. There are no pathologically enlarged lymph nodes. There is no free intraperitoneal fluid. There is severe lumba r spondylosis. IMPRESSION: 1. Mass in the ascending colon with increased activity, consistent with primary malignancy. 2. Liver masses with increased activity, consistent with metastatic disease. Reviewed, dictated and finalized at location A.
[2019-12-10 08:00] LABS: Glucose Point of Care 87 (65-105)
== END 2019-12-10 07:33 | disposition home or self-care (01) ==
PROVIDERS: PCP Family Medicine; Visit Provider Internal Medicine Hematology & Oncology
DX: C18.2 Malignant neoplasm of ascending colon (principal)
CPT/HCPCS: 78815; A9552

== ENCOUNTER 2020-01-29 12:30 | Outpatient (RCR) | payer MEDICARE, SELFPAY ==
--- NOTE | 2020-01-08 15:09 | PHAR ---
Adjusted dose of Bevacizumab by 5% to accommodate for vial sizes and reduce waste. 01/08/20
[2020-01-13 08:36] LABS: Basophils Absolute Auto 0.1 K/mm3 (0.0-0.1); Basophils Percent Auto 0.6 % (0.2-1.2); Eosinophils Absolute Auto 0.2 K/mm3 (0-0.3); Eosinophils Percent Auto 2.2 % (0-4.4); Hematocrit 33.1 % (42.0-52.0); Hemoglobin 10.2 g/dL (14.0-18.0); Immature Granulocyte Absolute 0.03 K/mm3 (0.00-0.031); Immature Granulocyte Percent A 0.3 % (0-0.5); Lymphocytes Percent Auto 10.9 % (18.3-44.2); Mean Corpuscular HGB Conc 30.8 g/dl (32-36); Mean Corpuscular Hemoglobin 25.9 pg (26-34); Mean Platelet Volume 9.1 fl (7.4-10.4); Monocytes Absolute Auto 1.2 K/mm3 (0.1-0.6); Monocytes Percent Auto 11.5 % (2.6-8.5); Neutrophils Absolute Auto 7.6 K/mm3 (1.3-6.7); Neutrophils Percent Auto 74.5 % (45.5-73.1); Platelet Count Result 373 k/mm3 (150-375); Red Blood Count 3.94 M/mm3 (4.6-6.20); White Blood Count 10.1 K/mm3 (4.5-10.0)
[2020-01-13 08:48] LABS: Blood Urea Nitrogen 9 mg/dL (8-26); Carbon Dioxide 24 mmol/L (22-30); Chloride 101 mmol/L (98-109); Estimated CRCL calculation 110 ml/min; Estimated Glomerular Filt Rate > 60; Glucose 106 mg/dL (70-105); Potassium 3.6 mmol/L (3.5-4.9); Sodium 138 mmol/L (138-146)
[2020-01-13 08:53] LABS: Protein Urine Trace mg/dL (Negative)
[2020-01-13 09:36] VITALS: BP 122/68; PULSE 77; RESP 16; TEMP 36.5; O2SAT 99
[2020-01-13] MEDS: FAMOTIDINE 20 MG/2 ML VIAL IV PUSH (09:50)
[2020-01-13] MEDS: PALONOSETRON HCL 0.25 MG/5 ML VIAL IV PUSH (09:50)
[2020-01-13] MEDS: OXALIPLATIN 170 MG in DEXTROSE 5% IN WATER 216 ML 125 MG IVPB (10:31)
[2020-01-13 12:25] LABS: Iron 32 ug/dL (49-181)
[2020-01-13 12:31] LABS: Alanine Aminotransferase 19 U/L (4-50); Albumin Level 3.3 g/dL (3.5-5.1); Alkaline Phosphatase 92 U/L (38-126); Aspartate Amino Transferase 31 U/L (17-59); Bilirubin,Total 0.3 mg/dL (0.2-1.3); Blood Urea Nitrogen 11 mg/dL (9-20); Calcium 8.8 mg/dL (8.4-10.2); Carbon Dioxide 25 mmol/L (22-30); Chloride 101 mmol/L (98-107); Estimated CRCL calculation 110 ml/min; Estimated Glomerular Filt Rate > 60; Glucose 111 mg/dL (75-110); Potassium 3.9 mmol/L (3.4-5.0); Sodium 136 mmol/L (137-145)
[2020-01-13 12:35] LABS: Percent Iron Saturation 18 % (20-50)
[2020-01-13 14:18] LABS: Carcinoembryonic Antigen 2.1 ng/mL (0.0-3.0)
[2020-01-13] MEDS: FLUOROURACIL 1,000 MG/20 ML VIAL 800 MG IV PUSH (14:51)
[2020-01-13] MEDS: FLUOROURACIL 4,800 MG in SODIUM CHLORIDE 0.9% IV 88 ML IVPB (14:51)
[2020-01-13 15:07] VITALS: BP 123/57; PULSE 92; RESP 16; O2SAT 98
--- NOTE | 2020-01-14 09:44 | PC.NURSE ---
Called and spoke with patient and he is without any negative symptoms and having no difficulties with infusion pump.
[2020-01-15 12:55] VITALS: BP 137/65; PULSE 93; RESP 16; TEMP 36.6; O2SAT 98
--- NOTE | 2020-01-15 12:58 | PC.NURSE ---
5fu pump completed at 1258. Here for pump removal
[2020-01-15] MEDS: HEPARIN SOD FLUSH 500 UNITS/5 ML SYRINGE IV PUSH (13:05)
[2020-01-27 08:42] LABS: Basophils Percent Auto 0.5 % (0.2-1.2); Eosinophils Absolute Auto 0.1 K/mm3 (0-0.3); Eosinophils Percent Auto 1.6 % (0-4.4); Hemoglobin 10.3 g/dL (14.0-18.0); Immature Granulocyte Absolute 0.01 K/mm3 (0.00-0.031); Immature Granulocyte Percent A 0.1 % (0-0.5); Lymphocytes Absolute Auto 1.28 K/mm3 (0.9-3.2); Mean Corpuscular HGB Conc 31.2 g/dl (32-36); Mean Corpuscular Hemoglobin 26.5 pg (26-34); Mean Corpuscular Volume 85.1 fl (80-100); Mean Platelet Volume 9.2 fl (7.4-10.4); Monocytes Absolute Auto 1.1 K/mm3 (0.1-0.6); Monocytes Percent Auto 15.2 % (2.6-8.5); Neutrophils Absolute Auto 4.9 K/mm3 (1.3-6.7); Neutrophils Percent Auto 65.6 % (45.5-73.1); Platelet Count Result 260 k/mm3 (150-375); Red Blood Count 3.88 M/mm3 (4.6-6.20); Red Cell Distribution Width 18.9 % (11.5-14.5); White Blood Count 7.5 K/mm3 (4.5-10.0)
[2020-01-27 08:54] LABS: Blood Urea Nitrogen 14 mg/dL (8-26); Carbon Dioxide 23 mmol/L (22-30); Chloride 99 mmol/L (98-109); Estimated CRCL calculation 94 ml/min; Estimated Glomerular Filt Rate > 60; Glucose 107 mg/dL (70-105); Potassium 4.4 mmol/L (3.5-4.9); Sodium 136 mmol/L (138-146)
[2020-01-27 09:32] VITALS: BP 106/59; PULSE 83; RESP 16; TEMP 36.6; O2SAT 100
[2020-01-27] MEDS: PALONOSETRON HCL 0.25 MG/5 ML VIAL IV PUSH (09:45)
[2020-01-27] MEDS: diphenhydrAMINE HCl INJ 50 MG/ML VIAL 25 MG IV PUSH (09:46)
[2020-01-27] MEDS: FAMOTIDINE 20 MG/2 ML VIAL IV PUSH (09:46)
[2020-01-27 10:31] LABS: Alanine Aminotransferase 21 U/L (4-50); Albumin Level 3.2 g/dL (3.5-5.1); Alkaline Phosphatase 98 U/L (38-126); Aspartate Amino Transferase 26 U/L (17-59); Bilirubin,Total 0.2 mg/dL (0.2-1.3); Blood Urea Nitrogen 15 mg/dL (9-20); Calcium 8.2 mg/dL (8.4-10.2); Carbon Dioxide 24 mmol/L (22-30); Chloride 101 mmol/L (98-107); Estimated CRCL calculation 94 ml/min; Estimated Glomerular Filt Rate > 60; Glucose 109 mg/dL (75-110); Potassium 4.6 mmol/L (3.4-5.0); Sodium 132 mmol/L (137-145)
[2020-01-27] MEDS: LEUCOVORIN CALCIUM 800 MG in DEXTROSE 5% IN WATER 210 ML 125 MG IVPB (10:35)
[2020-01-27] MEDS: OXALIPLATIN 170 MG in DEXTROSE 5% IN WATER 216 ML 125 MG IVPB (10:36)
[2020-01-27] MEDS: FLUOROURACIL 1,000 MG/20 ML VIAL 800 MG IV PUSH (14:03)
[2020-01-27] MEDS: FLUOROURACIL 4,800 MG in SODIUM CHLORIDE 0.9% IV 88 ML IVPB (14:03)
[2020-01-27 14:10] VITALS: BP 116/55
[2020-01-29 12:14] VITALS: TEMP 35.9
[2020-01-29 12:16] VITALS: BP 120/77; PULSE 75; RESP 16; O2SAT 100
[2020-01-29] MEDS: HEPARIN SOD FLUSH 500 UNITS/5 ML SYRINGE IV PUSH (12:24)
== END 2020-02-03 15:33 | disposition other institution (70) ==
LOC: AMCINF 12:30
PROVIDERS: PCP Family Medicine; Visit Provider Internal Medicine Hematology & Oncology
DX: Z45.1 Encounter for adjustment and management of infusion pump (principal); C18.2 Malignant neoplasm of ascending colon; C79.9 Secondary malignant neoplasm of unspecified site; I10 Essential (primary) hypertension; I48.91 Unspecified atrial fibrillation; D50.9 Iron deficiency anemia, unspecified; G47.33 Obstructive sleep apnea (adult) (pediatric); E66.01 Morbid (severe) obesity due to excess calories; N40.0 Benign prostatic hyperplasia without lower urinary tract symptoms; K21.9 Gastro-esophageal reflux disease without esophagitis; R26.9 Unspecified abnormalities of gait and mobility; F41.9 Anxiety disorder, unspecified; F43.21 Adjustment disorder with depressed mood
CPT/HCPCS: 36415; 80048; 80053; 81002; 82378; 82728; 83540; 83550; 85025; 96367; 96368; 96375; 96411; 96413; 96415; 96416; 96417; 99211; G0463; J0640; J1100; J1200; J2469; J7050; J7060; J9035; J9190; J9263